=== PATIENT | female | born 1960 | race African-American/Black ===

== ENCOUNTER → 2017-10-10 | Day surgery (SDC) | payer OTHER ==
[~2017-10-10] MED LIST: IV RINGERS,LACTATED 1000ML 1,000 ML IV; LIDOCAINE 1% PF 2 ML VIAL. ID; LIDOCAINE 2% PF Vial for OR 5 ML VIAL.; ONDANSETRON PF 4 MG/2 ML VIAL. IV; PROCHLORPERAZINE 10 MG/2 ML VIAL. IV; PROPOFOL 40 ML IV; fentaNYL PF VIAL 100 MCG/2 ML VIAL IV
[2017-10-10] MEDS: IV RINGERS,LACTATED 1000ML 1,000 ML IV (07:44)
== END | disposition home or self-care (01) ==
LOC: ENDOS 06:49
DX: Z09 Encounter for follow-up examination after completed treatment for conditions other than malignant neoplasm (principal); Z86.010 Personal history of colon polyps; D12.4 Benign neoplasm of descending colon; K64.0 First degree hemorrhoids; K29.50 Unspecified chronic gastritis without bleeding; Z91.040 Latex allergy status; J45.909 Unspecified asthma, uncomplicated; M19.90 Unspecified osteoarthritis, unspecified site; K21.9 Gastro-esophageal reflux disease without esophagitis; Z80.41 Family history of malignant neoplasm of ovary; Z80.1 Family history of malignant neoplasm of trachea, bronchus and lung; F17.210 Nicotine dependence, cigarettes, uncomplicated; Z79.899 Other long term (current) drug therapy; Z90.49 Acquired absence of other specified parts of digestive tract; Z88.0 Allergy status to penicillin; Z88.1 Allergy status to other antibiotic agents; Z88.5 Allergy status to narcotic agent; Z88.8 Allergy status to other drugs, medicaments and biological substances; Z98.890 Other specified postprocedural states; Z89.512 Acquired absence of left leg below knee; Z89.511 Acquired absence of right leg below knee
CPT/HCPCS: 43235; 45380; 88305; J2704

== ENCOUNTER → 2017-10-20 | Outpatient (CLI) | payer OTHER, MEDICARE | END | disposition home or self-care (01) | LOC: NM 07:09 | DX: I70.213 Atherosclerosis of native arteries of extremities with intermittent claudication, bilateral legs (principal); I08.3 Combined rheumatic disorders of mitral, aortic and tricuspid valves | CPT/HCPCS: 93306; 93925 ==

== ENCOUNTER → 2017-10-28 | Outpatient (CLI) | payer OTHER | END | disposition home or self-care (01) | LOC: NM 08:09 | DX: R10.13 Epigastric pain (principal); R11.0 Nausea | CPT/HCPCS: 78264; A9541 ==

== ENCOUNTER → 2017-12-09 | Outpatient (CLI) | payer OTHER ==
[2017-12-09] MEDS: BARIUM SULFATE 60% 355 ML SUSP PO (09:00)
== END | disposition home or self-care (01) ==
LOC: RAD 08:18
DX: R10.13 Epigastric pain (principal); J45.909 Unspecified asthma, uncomplicated; K21.9 Gastro-esophageal reflux disease without esophagitis
CPT/HCPCS: 74250

== ENCOUNTER 2018-07-23 14:08 | Inpatient (IN) | payer OTHER ==
[~2018-07-23] VITALS: Ht 167.6 cm; Wt 57.8 kg
[~2018-07-23 14:08] MED LIST changes: +BACL20TA PO; +GABA800T5 PO; +HYDR-3165 PO; -IV RINGERS,LACTATED 1000ML 1,000 ML IV; -LIDOCAINE 1% PF 2 ML VIAL. ID; -LIDOCAINE 2% PF Vial for OR 5 ML VIAL.; +LORA10TA68 PO; +MONT10TA9 PO; -ONDANSETRON PF 4 MG/2 ML VIAL. IV; +OXYC30TA64 PO; -PROCHLORPERAZINE 10 MG/2 ML VIAL. IV; -PROPOFOL 40 ML IV; -fentaNYL PF VIAL 100 MCG/2 ML VIAL IV
[2018-07-23] MEDS ORDERED: NITROGLYCERIN SUBLINGUAL 0.4 MG BOTTLE OF 25. SL PRN (14:15)
[2018-07-23] MEDS: NITROGLYCERIN SUBLINGUAL 0.4 MG BOTTLE OF 25. SL PRN ×2 (14:30→15:53)
--- NOTE | 2018-07-23 14:41 | RAD ---
Portable chest, 07/23/2018: HISTORY: Chest pain The heart size and pulmonary vascularity are normal. No pulmonary infiltrate is seen. There is no evidence of pleural fluid. Moderate hypertrophic spurring is present in the spine. IMPRESSION: No acute cardiopulmonary abnormality is detected. Electronically signed by: Jason Gutiérrez MD (07/23/2018 2:38 PM) [facility]
[2018-07-23 14:43] LABS: BASO % 1 % (0-3); EOS % 0 % (0-3); HEMATOCRIT 44.3 % (36.0-47.0); HEMOGLOBIN 14.9 g/dL (12.0-15.5); LYMPH # 0.9 x10^3/uL (1.0-4.8); LYMPH % 27 % (24-48); MEAN CORPUSCULAR HEMOGLOBIN 30 pg (25-35); MEAN CORPUSCULAR HGB CONC 34 g/dL (31-37); MEAN CORPUSCULAR VOLUME 90 fL (79-100); MONO # 0.7 x10^3/uL (0.0-1.1); MONO % 20 % (0-9); NEUT # 1.8 x10^3uL (1.8-7.7); NEUT % 52 % (31-73); PLATELET COUNT 116 x10^3/uL (140-400); RED BLOOD COUNT 4.93 x10^6/uL (3.50-5.40); RED CELL DISTRIBUTION WIDTH 13.3 % (11.5-14.5); WHITE BLOOD COUNT 3.4 x10^3/uL (4.0-11.0)
[2018-07-23 14:55] LABS: CALCIUM 9.1 mg/dL (8.5-10.1); CREATININE 0.9 mg/dL (0.6-1.0); GFR 77.8
[2018-07-23 15:01] LABS: ALBUMIN 3.3 g/dL (3.4-5.0); ALBUMIN/GLOBULIN RATIO 0.8 (1.0-1.7); MAGNESIUM 2.3 mg/dL (1.8-2.4); TOTAL BILIRUBIN 0.5 mg/dL (0.2-1.0); TOTAL PROTEIN 7.5 g/dL (6.4-8.2)
[2018-07-23] MEDS ORDERED: fentaNYL PF VIAL 100 MCG/2 ML VIAL IV PRN (15:45)
[2018-07-23] MEDS ORDERED: ONDANSETRON PF 4 MG/2 ML VIAL. IV PRN (15:45)
--- NOTE | 2018-07-23 15:45 | PHYS DOC ---
Past Medical History Past Medical History: Asthma Additional Past Medical Histor: fibromyalgia, neuropathy Past Surgical History: Other Additional Past Surgical Histo: BILAT below knee amputation Alcohol Use: None Drug Use: None Adult General Chief Complaint Chief Complaint: UPPER EXTREMITY PAIN HPI HPI Patient is a 58-year-old female who presents with complaint of midsternal chest pain. Patient states that earlier today she had been taking some pills and one of the pills seem to get stuck in her throat. She states that she had choked for second and was able to get it down after drinking some water but has had chest pain ever since. She rates the pain as being moderate. She states the pain radiates into her right shoulder and arm. She does indicate that she became nauseated initially but currently has no nausea. Patient thinks that she may have some spasm in her esophagus. Review of Systems Review of Systems Constitutional: Denies fever or chills [] Respiratory: Denies cough or shortness of breath [] Cardiovascular: No additional information not addressed in HPI [] GI: Denies abdominal pain. Complains of nausea without vomiting. [] Integument: Denies rash or skin lesions [] Neurologic: Denies headache, focal weakness or sensory changes [] All other systems were reviewed and found to be within normal limits, except as documented in this note. Current Medications Current Medications Current Medications Medications (Trade) Dose Ordered Sig/Renate Start Time Stop Time Status Last Admin Dose Admin Nitroglycerin (Nitrostat) 0.4 mg PRN Q5MIN PRN 07/23/18 14:15 07/24/18 14:14 Allergies Allergies Allergies Coded Allergies Type Severity Reaction Last Updated Verified Penicillins Allergy Intermediate 10/10/17 No albuterol Allergy Intermediate 10/10/17 No ciprofloxacin Allergy Intermediate 10/10/17 No erythromycin base Allergy Intermediate 10/10/17 No latex Allergy Intermediate Hives 10/10/17 Yes morphine Allergy Intermediate 10/10/17 No Physical Exam Physical Exam Constitutional: Well developed, well nourished, no acute distress, non-toxic appearance. [] HENT: Normocephalic, atraumatic, bilateral external ears normal, oropharynx moist, no oral exudates, nose normal. [] Eyes: PERRLA, EOMI, conjunctiva normal, no discharge. [] Neck: Normal range of motion, no tenderness, supple, no stridor. [] Cardiovascular: Regular rate and rhythm[] Lungs & Thorax: Bilateral breath sounds clear to auscultation [] Abdomen: Bowel sounds normal, soft, no tenderness. [] Skin: Warm, dry, no erythema, no rash. [] Extremities: Exam of lower extremities demonstrates bilateral BKA's. [] Neurologic: Alert and oriented X 3, no focal deficits noted. [] Current Patient Data Vital Signs Vital Signs Date Time Temp Pulse Resp B/P (MAP) Pulse Ox O2 Delivery O2 Flow Rate FiO2 07/23/18 14:16 97.7 67 20 197/90 (125) 97 Room Air 97.7 Lab Values Laboratory Tests Test 07/23/18 14:35 White Blood Count 3.4 x10^3/uL (4.0-11.0) L Red Blood Count 4.93 x10^6/uL (3.50-5.40) Hemoglobin 14.9 g/dL (12.0-15.5) Hematocrit 44.3 % (36.0-47.0) Mean Corpuscular Volume 90 fL (79-100) Mean Corpuscular Hemoglobin 30 pg (25-35) Mean Corpuscular Hemoglobin Concent 34 g/dL (31-37) Red Cell Distribution Width 13.3 % (11.5-14.5) Platelet Count 116 x10^3/uL (140-400) L Neutrophils (%) (Auto) 52 % (31-73) Lymphocytes (%) (Auto) 27 % (24-48) Monocytes (%) (Auto) 20 % (0-9) H Eosinophils (%) (Auto) 0 % (0-3) Basophils (%) (Auto) 1 % (0-3) Neutrophils # (Auto) 1.8 x10^3uL (1.8-7.7) Lymphocytes # (Auto) 0.9 x10^3/uL (1.0-4.8) L Monocytes # (Auto) 0.7 x10^3/uL (0.0-1.1) Eosinophils # (Auto) 0.0 x10^3/uL (0.0-0.7) Basophils # (Auto) 0.0 x10^3/uL (0.0-0.2) Platelet Estimate Pending Sodium Level 144 mmol/L (136-145) Potassium Level 4.0 mmol/L (3.5-5.1) Chloride Level 105 mmol/L (98-107) Carbon Dioxide Level 32 mmol/L (21-32) Anion Gap 7 (6-14) Blood Urea Nitrogen 16 mg/dL (7-20) Creatinine 0.9 mg/dL (0.6-1.0) Estimated GFR (Cockcroft-Gault) 77.8 BUN/Creatinine Ratio 18 (6-20) Glucose Level 117 mg/dL (70-99) H Calcium Level 9.1 mg/dL (8.5-10.1) Magnesium Level 2.3 mg/dL (1.8-2.4) Total Bilirubin 0.5 mg/dL (0.2-1.0) Aspartate Amino Transferase (AST) 60 U/L (15-37) H Alanine Aminotransferase (ALT) 34 U/L (14-59) Alkaline Phosphatase 77 U/L (46-116) Troponin I Quantitative 0.021 ng/mL (0.000-0.055) Total Protein 7.5 g/dL (6.4-8.2) Albumin 3.3 g/dL (3.4-5.0) L Albumin/Globulin Ratio 0.8 (1.0-1.7) L Laboratory Tests 07/23/18 14:35 Laboratory Tests 07/23/18 14:35 EKG EKG [] Interpretation Time: EKG demonstrates normal sinus rhythm with rate of 67. Radiology/Procedures Radiology/Procedures [] Impressions: Chest x-ray demonstrates no acute process. Course & Med Decision Making Course & Med Decision Making Pertinent Labs and Imaging studies reviewed. (See chart for details) [] Dragon Disclaimer Dragon Disclaimer This electronic medical record was generated, in whole or in part, using a voice recognition dictation system. Departure Departure Impression: Primary Impression: Chest pain Disposition: 09 ADMITTED INPATIENT Admitting Physician: Cara Boone Condition: IMPROVED Referrals: EMMIE WEINER (PCP) Problem Qualifiers Primary Impression: Chest pain Chest pain type: unspecified Qualified Codes: R07.9 - Chest pain, unspecified RONALD LIRIANO Jr. DO Jul 23, 2018 15:45
[2018-07-23 16:17] LABS: % ATYL 5 % (0-0); % BANDS 13 % (0-9); % LYMPHS 27 % (24-48); % MONOS 11 % (0-10); % SEGS 44 % (35-66)
[2018-07-23 16:18] LABS: PLT ESTIMATE DECREASED (ADEQUATE)
[2018-07-23 17:00] VITALS: BP 156/91
--- NOTE | 2018-07-23 18:29 | PDOC1 ---
History and Physical Date of Admission Date of Admission DATE: 07/23/18 TIME: 18:23 Identification/Chief Complaint Chief Complaint chest pain Source Source: Chart review, Patient History of Present Illness History of Present Illness Ms. Marrero is a 58-year-old female who presents with complaint of midsternal chest pain. has been coughing, has bronchitis, has 7/10 pain to chest, worse with cough and worse with deep bresath. she is animated with her speech and agitated about her care in the ER, as they were very busy she has been stopped on her narcotic pain meds for chronic pain. She does indicate that she became nauseated initially but currently has no nausea. Patient thinks that she may have some spasm in her esophagus. Past Medical History Cardiovascular: No pertinent hx GI: No pertinent hx Hepatobiliary: No pertinent hx Psych: No pertinent hx Rheumatologic: No pertinent hx Infectious disease: No pertinent hx Family History Family History: No Significant Social History Smoke: No ALCOHOL: none Drugs: None Current Problem List Problem List Problems Medical Problems: (1) Chest pain Status: Acute Current Medications Current Medications Current Medications Nitroglycerin (Nitrostat) 0.4 mg PRN Q5MIN PRN SL CP RATING > 1/10; Start 07/23 at 14:15; Stop 07/24/18 at 14:14 Ondansetron HCl (Zofran) 4 mg PRN Q8HRS PRN IV NAUSEA/VOMITING; Start 07/23/18 at 15:45; Stop 07/24/18 at 15:44 Fentanyl Citrate (Fentanyl 2ml Vial) 50 mcg PRN Q1HR PRN IV PAIN; Start at 15:45; Stop 07/24/18 at 15:44 Nitroglycerin (Nitrostat) 0.4 mg PRN Q5MIN PRN SL CHEST PAIN Last administered on 07/23/18at 15:53; Start 07/23/18 at 15:45; Stop 07/24/18 at 15:44 Active Scripts Active Reported Baclofen 20 Mg Tablet 1 Tab PO TID Gabapentin 800 Mg Tablet 1,200 Mg PO TID Allergies Allergies: Coded Allergies: Penicillins (Unverified Allergy, Intermediate, 10/10/17) albuterol (Unverified Allergy, Intermediate, 10/10/17) ciprofloxacin (Unverified Allergy, Intermediate, 10/10/17) erythromycin base (Unverified Allergy, Intermediate, 10/10/17) latex (Verified Allergy, Intermediate, Hives, 10/10/17) morphine (Unverified Allergy, Intermediate, 10/10/17) ROS General: No: Chills, Night Sweats, Fatigue, Malaise, Appetite, Other PSYCHOLOGICAL ROS: No: Anxiety, Behavioral Disorder, Concentration difficultie , Decreased libido, Depression, Disorientation, Hallucinations, Hostility, Irritablity, Memory difficulties, Mood Swings, Obsessive thoughts, Physical abuse, Sexual abuse, Sleep disturbances, Suicidal ideation, Other Eyes: No Blurry vision, No Decreased vision, No Double vision, No Dry eyes, No Excessive tearing, No Eye Pain, No Itchy Eyes, No Loss of vision, No Photophobia , No Scotomata, No Uses contacts, No Uses glasses, No Other HEENT: No: Heacaches, Visual Changes, Hearing change, Nasal congestion, Nasal discharge, Oral lesions, Sinus pain, Sore Throat, Epistaxis, Sneezing, Snoring, Tinnitus, Vertigo, Vocal changes, Other Respiratory: No: Cough, Hemoptysis, Orthopnea, Pleuritic Pain, Shortness of breath, SOB with excertion, Sputum Changes, Stridor, Tachypnea, Wheezing, Other Cardiovascular: No Chest Pain, No Palpitations, No Orthopnea, No Paroxysmal Noc. Dyspnea, No Edema, No Lt Headedness, No Other Gastrointestinal: Yes Nausea Genitourinary: No Dysuria, No Frequency, No Incontinence, No Hematuria, No Retention, No Discharge, No Urgency, No Pain, No Flank Pain, No Other, No , No , No , No , No , No , No Musculoskeletal: No Gait Disturbance, No Joint Pain, No Joint Stiffness, No Joint Swelling, No Muscle Pain, No Muscular Weakness, No Pain In:, No Swelling In:, No Other Neurological: No Behavorial Changes, No Bowel/Bladder ControlChng, No Confusion , No Dizziness, No Gait Disturbance, No Headaches, No Impaired Coord/balance, No Memory Loss, No Numbness/Tingling, No Seizures, No Speech Problems, No Tremors, No Visual Changes, No Weakness, No Other Skin: No Dry Skin, No Eczema, No Hair Changes, No Lumps, No Mole Changes, No Mottling, No Nail Changes, No Pruritus, No Rash, No Skin Lesion Changes, No Other, No Acne Physical Exam General: Alert, Cooperative, No acute distress HEENT: PERRLA, EOMI, Mucous membr. moist/pink Lungs: Clear to auscultation, Normal air movement Heart: S1S2, no gallops, no murmurs Abdomen: Normal bowel sounds, Soft Rectal Exam: not examined Extremities: Normal pulses, Other (bilat BKA) Skin: No rashes, No breakdown, No significant lesion Neuro: Normal gait, Normal tone, Cranial nerves 3-12 NL Psych/Mental Status: Other (animated, pressured speech) Vitals Vitals Vital Signs Date Time Temp Pulse Resp B/P (MAP) Pulse Ox O2 Delivery O2 Flow Rate FiO2 07/23/18 15:53 74 166/78 07/23/18 15:47 96 Room Air 07/23/18 14:16 97.7 20 97.7 Labs Labs Laboratory Tests Test 07/23/18 14:35 White Blood Count 3.4 x10^3/uL (4.0-11.0) Red Blood Count 4.93 x10^6/uL (3.50-5.40) Hemoglobin 14.9 g/dL (12.0-15.5) Hematocrit 44.3 % (36.0-47.0) Mean Corpuscular Volume 90 fL (79-100) Mean Corpuscular Hemoglobin 30 pg (25-35) Mean Corpuscular Hemoglobin Concent 34 g/dL (31-37) Red Cell Distribution Width 13.3 % (11.5-14.5) Platelet Count 116 x10^3/uL (140-400) Neutrophils (%) (Auto) 52 % (31-73) Lymphocytes (%) (Auto) 27 % (24-48) Monocytes (%) (Auto) 20 % (0-9) Eosinophils (%) (Auto) 0 % (0-3) Basophils (%) (Auto) 1 % (0-3) Neutrophils # (Auto) 1.8 x10^3uL (1.8-7.7) Lymphocytes # (Auto) 0.9 x10^3/uL (1.0-4.8) Monocytes # (Auto) 0.7 x10^3/uL (0.0-1.1) Eosinophils # (Auto) 0.0 x10^3/uL (0.0-0.7) Basophils # (Auto) 0.0 x10^3/uL (0.0-0.2) Segmented Neutrophils % 44 % (35-66) Band Neutrophils % 13 % (0-9) Lymphocytes % 27 % (24-48) Atypical Lymphocytes % (Manual) 5 % (0-0) Monocytes % 11 % (0-10) Platelet Estimate Decreased (ADEQUATE) Sodium Level 144 mmol/L (136-145) Potassium Level 4.0 mmol/L (3.5-5.1) Chloride Level 105 mmol/L (98-107) Carbon Dioxide Level 32 mmol/L (21-32) Anion Gap 7 (6-14) Blood Urea Nitrogen 16 mg/dL (7-20) Creatinine 0.9 mg/dL (0.6-1.0) Estimated GFR (Cockcroft-Gault) 77.8 BUN/Creatinine Ratio 18 (6-20) Glucose Level 117 mg/dL (70-99) Calcium Level 9.1 mg/dL (8.5-10.1) Magnesium Level 2.3 mg/dL (1.8-2.4) Total Bilirubin 0.5 mg/dL (0.2-1.0) Aspartate Amino Transf (AST/SGOT) 60 U/L (15-37) Alanine Aminotransferase (ALT/SGPT) 34 U/L (14-59) Alkaline Phosphatase 77 U/L (46-116) Troponin I Quantitative 0.021 ng/mL (0.000-0.055) Total Protein 7.5 g/dL (6.4-8.2) Albumin 3.3 g/dL (3.4-5.0) Albumin/Globulin Ratio 0.8 (1.0-1.7) Laboratory Tests Test 07/23/18 14:35 White Blood Count 3.4 x10^3/uL (4.0-11.0) Red Blood Count 4.93 x10^6/uL (3.50-5.40) Hemoglobin 14.9 g/dL (12.0-15.5) Hematocrit 44.3 % (36.0-47.0) Mean Corpuscular Volume 90 fL (79-100) Mean Corpuscular Hemoglobin 30 pg (25-35) Mean Corpuscular Hemoglobin Concent 34 g/dL (31-37) Red Cell Distribution Width 13.3 % (11.5-14.5) Platelet Count 116 x10^3/uL (140-400) Neutrophils (%) (Auto) 52 % (31-73) Lymphocytes (%) (Auto) 27 % (24-48) Monocytes (%) (Auto) 20 % (0-9) Eosinophils (%) (Auto) 0 % (0-3) Basophils (%) (Auto) 1 % (0-3) Neutrophils # (Auto) 1.8 x10^3uL (1.8-7.7) Lymphocytes # (Auto) 0.9 x10^3/uL (1.0-4.8) Monocytes # (Auto) 0.7 x10^3/uL (0.0-1.1) Eosinophils # (Auto) 0.0 x10^3/uL (0.0-0.7) Basophils # (Auto) 0.0 x10^3/uL (0.0-0.2) Segmented Neutrophils % 44 % (35-66) Band Neutrophils % 13 % (0-9) Lymphocytes % 27 % (24-48) Atypical Lymphocytes % (Manual) 5 % (0-0) Monocytes % 11 % (0-10) Platelet Estimate Decreased (ADEQUATE) Sodium Level 144 mmol/L (136-145) Potassium Level 4.0 mmol/L (3.5-5.1) Chloride Level 105 mmol/L (98-107) Carbon Dioxide Level 32 mmol/L (21-32) Anion Gap 7 (6-14) Blood Urea Nitrogen 16 mg/dL (7-20) Creatinine 0.9 mg/dL (0.6-1.0) Estimated GFR (Cockcroft-Gault) 77.8 BUN/Creatinine Ratio 18 (6-20) Glucose Level 117 mg/dL (70-99) Calcium Level 9.1 mg/dL (8.5-10.1) Magnesium Level 2.3 mg/dL (1.8-2.4) Total Bilirubin 0.5 mg/dL (0.2-1.0) Aspartate Amino Transf (AST/SGOT) 60 U/L (15-37) Alanine Aminotransferase (ALT/SGPT) 34 U/L (14-59) Alkaline Phosphatase 77 U/L (46-116) Troponin I Quantitative 0.021 ng/mL (0.000-0.055) Total Protein 7.5 g/dL (6.4-8.2) Albumin 3.3 g/dL (3.4-5.0) Albumin/Globulin Ratio 0.8 (1.0-1.7) VTE Prophylaxis Ordered VTE Prophylaxis Devices: No VTE Pharmacological Prophylaxi: Yes Assessment/Plan Assessment/Plan chest pain, admit to r.o ACS cough, bronchitis, pleuritic pain, costochondritis LAY RUIZ MD Jul 23, 2018 18:29
[2018-07-23] MEDS ORDERED: guaiFENesin DM 200MG/20MG 10 ML SYRUP PO PRN (18:30)
[2018-07-23] MEDS ORDERED: diazePAM 5 MG TABLET PO ONE (18:30)
[2018-07-23] MEDS ORDERED: OSEL30CA PO (19:46)
[2018-07-23 19:50] VITALS: BP 169/104
[2018-07-23] MEDS: GABAPENTIN 400 MG CAPSULE. PO SCH (20:57)
[2018-07-23] MEDS: BACLOFEN 10 MG TABLET. PO SCH (20:57)
[2018-07-23] MEDS: ENOXAPARIN 40 MG/0.4 ML SYRINGE. SQ SCH (20:58)
[2018-07-23 22:19] VITALS: BP 128/75
[2018-07-24] VITALS (7 sets, daily range): BP systolic 129–175; BP diastolic 65–83
[2018-07-24] MEDS ORDERED: PRED20TA PO (01:25)
[2018-07-24 04:29] LABS: BASO % 0 % (0-3); EOS % 0 % (0-3); HEMATOCRIT 42.9 % (36.0-47.0); HEMOGLOBIN 14.3 g/dL (12.0-15.5); LYMPH # 0.9 x10^3/uL (1.0-4.8); LYMPH % 25 % (24-48); MEAN CORPUSCULAR HEMOGLOBIN 30 pg (25-35); MEAN CORPUSCULAR HGB CONC 33 g/dL (31-37); MEAN CORPUSCULAR VOLUME 91 fL (79-100); MONO # 0.5 x10^3/uL (0.0-1.1); MONO % 14 % (0-9); NEUT # 2.1 x10^3uL (1.8-7.7); NEUT % 61 % (31-73); PLATELET COUNT 119 x10^3/uL (140-400); RED BLOOD COUNT 4.74 x10^6/uL (3.50-5.40); RED CELL DISTRIBUTION WIDTH 13.7 % (11.5-14.5); WHITE BLOOD COUNT 3.5 x10^3/uL (4.0-11.0)
[2018-07-24 04:53] LABS: ALBUMIN 3.2 g/dL (3.4-5.0); ALBUMIN/GLOBULIN RATIO 0.8 (1.0-1.7); CALCIUM 9.2 mg/dL (8.5-10.1); CREATININE 0.8 mg/dL (0.6-1.0); GFR 89.1; POTASSIUM 4.4 mmol/L (3.5-5.1); TOTAL BILIRUBIN 0.5 mg/dL (0.2-1.0); TOTAL PROTEIN 7.1 g/dL (6.4-8.2)
[2018-07-24 04:58] LABS: CHOLESTEROL/HDL RATIO 5.7
[2018-07-24] MEDS: BACLOFEN 10 MG TABLET. PO SCH ×3 (09:25→21:28)
[2018-07-24] MEDS: GABAPENTIN 400 MG CAPSULE. PO SCH ×3 (09:25→21:29)
--- NOTE | 2018-07-24 10:11 | EKG ---
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
[2018-07-24] MEDS: OSELTAMIVIR 75 MG CAPSULE PO SCH ×2 (11:42→21:29)
[2018-07-24] MEDS: predniSONE 20 MG TABLET PO SCH (11:42)
--- NOTE | 2018-07-24 11:49 | NUR ---
SS following for discharge planning. Pt is from home and currently on room air. No discharge needs noted at this time. SS will continue to follow for pending discharge needs.
--- NOTE | 2018-07-24 12:40 | PDOC2 ---
SHASHANK MITTAL PHYSICIAN CODING SPECIALIST 07/24/18 1240: CARDIAC CONSULT DATE OF CONSULT Date of Consult DATE: 07/24/18 TIME: 12:12 REASON FOR CONSULT Reason for Consult: Chest pain REFERRING PHYSICIAN Referring Physician: Wes SOURCE Source: Chart review, Patient HISTORY OF PRESENT ILLNESS HISTORY OF PRESENT ILLNESS This is a pleasant 58 yo female admitted for complains of chest pain. Reports that yesterday he started having sharp crampy right sided chest pain which is also reproducible with palpation. Reports that this started after taking her pills which at times she feels like pills gets stuck. She has been having daily heartburn. Denies any nausea or SOA but yesterday he could not take a deep breath because of the pain. No GRIJALVA or exertional CP prior to this event. No palpitations or dizziness. No previous falls or any recent injury. PAST MEDICAL HISTORY Cardiovascular: Valve insufficiency, Other (murmu; scarlet fever; PAD) Pulmonary: Other (lung nodule) CENTRAL NERVOUS SYSTEM: Seizure Musculoskeletal: Osteoarthritis Rheumatologic: Fibromyalgia ENT: Allergic Rhinitis PAST SURGICAL HISTORY Past Surgical History: Cholecystectomy, Other (bilateral BKA 2007; ureteral stenting; abdominal surgery) FAMILY HISTORY Family History: Diabetes SOCIAL HISTORY Smoke: Quit ALCOHOL: none Drugs: None CURRENT MEDICATIONS CURRENT MEDICATIONS Current Medications Medications (Trade) Dose Ordered Sig/Renate Route PRN Reason Start Time Stop Time Status Last Admin Dose Admin Nitroglycerin (Nitrostat) 0.4 mg PRN Q5MIN PRN SL CHEST PAIN 07/23/18 15:45 07/24/18 15:44 07/23/18 15:53 Diazepam (Valium) 5 mg 1X ONCE PO 07/23/18 18:30 07/23/18 18:31 DC 07/23/18 20:58 Guaifenesin (Robitussin Dm) 10 ml PRN Q6HRS PRN PO COUGH 07/23/18 18:30 07/23/18 20:57 Enoxaparin Sodium (Lovenox 40mg Syringe) 40 mg Q24H SQ 07/23/18 21:00 07/23/18 20:58 Baclofen (Lioresal) 20 mg TID PO 07/23/18 21:00 07/24/18 09:25 Gabapentin (Neurontin) 1,200 mg TID PO 07/23/18 21:00 07/24/18 09:25 Oseltamivir Phosphate (Tamiflu) 75 mg BID PO 07/24/18 11:30 07/29/18 11:29 07/24/18 11:42 Prednisone (Prednisone) 60 mg DAILY PO 07/24/18 11:30 07/24/18 11:42 ALLERGIES ALLERGIES: Coded Allergies: Penicillins (Verified Allergy, Intermediate, 07/24/18) albuterol (Verified Allergy, Intermediate, 07/24/18) ciprofloxacin (Verified Allergy, Intermediate, 07/24/18) erythromycin base (Verified Allergy, Intermediate, 07/24/18) latex (Verified Allergy, Intermediate, Hives, 10/10/17) morphine (Verified Allergy, Intermediate, 07/24/18) ROS Review of System 14 point ROs evaluated with pertinent positives noted per HPI PHYSICAL EXAM General: Alert, Oriented X3, Cooperative, No acute distress HEENT: Atraumatic, Mucous membr. moist/pink Lungs: Other Heart: Regular rate (SR), Normal S1, Normal S2, Other (2/6 diastolic murmur to ERIN border) Abdomen: Soft, No tenderness Extremities: No cyanosis, No edema, Other (bi;lateral BKA ) Skin: No significant lesion Neuro: Normal speech, Sensation intact Psych/Mental Status: Mental status NL, Mood NL MUSCULOSKELETAL: Osteoarthritic changes both hands VITALS VITALS Vital Signs Date Time Temp Pulse Resp B/P (MAP) Pulse Ox O2 Delivery O2 Flow Rate FiO2 07/24/18 11:00 97.9 74 20 157/79 (105) 98 Room Air 97.9 LABS Lab: Laboratory Tests Test 07/23/18 14:35 07/23/18 19:00 07/23/18 23:30 07/24/18 03:00 White Blood Count 3.4 x10^3/uL (4.0-11.0) 3.5 x10^3/uL (4.0-11.0) Red Blood Count 4.93 x10^6/uL (3.50-5.40) 4.74 x10^6/uL (3.50-5.40) Hemoglobin 14.9 g/dL (12.0-15.5) 14.3 g/dL (12.0-15.5) Hematocrit 44.3 % (36.0-47.0) 42.9 % (36.0-47.0) Mean Corpuscular Volume 90 fL (79-100) 91 fL (79-100) Mean Corpuscular Hemoglobin 30 pg (25-35) 30 pg (25-35) Mean Corpuscular Hemoglobin Concent 34 g/dL (31-37) 33 g/dL (31-37) Red Cell Distribution Width 13.3 % (11.5-14.5) 13.7 % (11.5-14.5) Platelet Count 116 x10^3/uL (140-400) 119 x10^3/uL (140-400) Neutrophils (%) (Auto) 52 % (31-73) 61 % (31-73) Lymphocytes (%) (Auto) 27 % (24-48) 25 % (24-48) Monocytes (%) (Auto) 20 % (0-9) 14 % (0-9) Eosinophils (%) (Auto) 0 % (0-3) 0 % (0-3) Basophils (%) (Auto) 1 % (0-3) 0 % (0-3) Neutrophils # (Auto) 1.8 x10^3uL (1.8-7.7) 2.1 x10^3uL (1.8-7.7) Lymphocytes # (Auto) 0.9 x10^3/uL (1.0-4.8) 0.9 x10^3/uL (1.0-4.8) Monocytes # (Auto) 0.7 x10^3/uL (0.0-1.1) 0.5 x10^3/uL (0.0-1.1) Eosinophils # (Auto) 0.0 x10^3/uL (0.0-0.7) 0.0 x10^3/uL (0.0-0.7) Basophils # (Auto) 0.0 x10^3/uL (0.0-0.2) 0.0 x10^3/uL (0.0-0.2) Segmented Neutrophils % 44 % (35-66) Band Neutrophils % 13 % (0-9) Lymphocytes % 27 % (24-48) Atypical Lymphocytes % (Manual) 5 % (0-0) Monocytes % 11 % (0-10) Platelet Estimate Decreased (ADEQUATE) Sodium Level 144 mmol/L (136-145) 145 mmol/L (136-145) Potassium Level 4.0 mmol/L (3.5-5.1) 4.4 mmol/L (3.5-5.1) Chloride Level 105 mmol/L (98-107) 106 mmol/L (98-107) Carbon Dioxide Level 32 mmol/L (21-32) 34 mmol/L (21-32) Anion Gap 7 (6-14) 5 (6-14) Blood Urea Nitrogen 16 mg/dL (7-20) 16 mg/dL (7-20) Creatinine 0.9 mg/dL (0.6-1.0) 0.8 mg/dL (0.6-1.0) Estimated GFR (Cockcroft-Gault) 77.8 89.1 BUN/Creatinine Ratio 18 (6-20) 20 (6-20) Glucose Level 117 mg/dL (70-99) 126 mg/dL (70-99) Calcium Level 9.1 mg/dL (8.5-10.1) 9.2 mg/dL (8.5-10.1) Magnesium Level 2.3 mg/dL (1.8-2.4) Total Bilirubin 0.5 mg/dL (0.2-1.0) 0.5 mg/dL (0.2-1.0) Aspartate Amino Transf (AST/SGOT) 60 U/L (15-37) 52 U/L (15-37) Alanine Aminotransferase (ALT/SGPT) 34 U/L (14-59) 37 U/L (14-59) Alkaline Phosphatase 77 U/L (46-116) 73 U/L (46-116) Troponin I Quantitative 0.021 ng/mL (0.000-0.055) 0.052 ng/mL (0.000-0.055) 0.039 ng/mL (0.000-0.055) Total Protein 7.5 g/dL (6.4-8.2) 7.1 g/dL (6.4-8.2) Albumin 3.3 g/dL (3.4-5.0) 3.2 g/dL (3.4-5.0) Albumin/Globulin Ratio 0.8 (1.0-1.7) 0.8 (1.0-1.7) Triglycerides Level 209 mg/dL (0-150) Cholesterol Level 228 mg/dL (0-200) LDL Cholesterol, Calculated 146 mg/dL (0-100) VLDL Cholesterol, Calculated 42 mg/dL (0-40) Non-HDL Cholesterol Calculated 188 mg/dL (0-129) HDL Cholesterol 40 mg/dL (40-60) Cholesterol/HDL Ratio 5.7 IMAGES IMAGES <Conclusion> 1. Diffuse bilateral lower extremity arterial disease. Mildly elevated bilateral common femoral arterial disease suggestive of mild to moderate inflow disease. 2. Diffuse distal SFA and popliteal disease with significantly diminished velocities. If there is concern for left knee stump wound or pain issues could evaluate further with a CT angiogram or diagnostic angiography. DATE: 10/20/17 0946 ECHOCARDIOGRAM ECHOCARDIOGRAM <Conclusion> The left ventricular systolic function is normal and the ejection fraction is within normal range. The Ejection Fraction is 55-60%. There is normal LV segmental wall motion. Doppler and Color Flow revealed mild to moderate aortic regurgitation. PHT 450 ms. Doppler and Color-flow revealed mild mitral regurgitation. Doppler and Color Flow revealed trace to mild tricuspid regurgitation. The PA pressure was estimated at 34 mmHg. DATE: 10/20/17 0949 STRESS TEST STRESS TEST Conclusion 1. No evidence of EKG changes with stress testing. 2. Normal perfusion at stress/rest. 3. Low risk study. 4. EF > 60%. DATE: 10/21/17 1319 ASSESSMENT/PLAN ASSESSMENT/PLAN 1. Atypical Chest pain: possibly esophageal spasm with also GERD exacerbation. also reproducible. 2. Accelerated HTN: alliance party due to pain. 3. Moderate AI 4. LE PAD with bilateral BKA: mild to mod disease. WC bound, no pain 5. HLP: new 6. Asymptomatic SB: no pauses or blocks. 7. Hx of asthma: claimed angioedema with albuterol, currently with diffuse wheeze. no SOA. Per PCP. sees outpt editing intern. 9. Recent flu: still on tamiflu Recommendations. 1. May need consult GI. Intolerant to PPI in the past. Daily heartburn 2. Recent stress test as noted. above. No AV moo blocking agents. Start on chlorthalidone, ASA and lipitor. 3. TTE today. MESHA IYER MD 07/24/18 3077: CARDIAC CONSULT ASSESSMENT/PLAN ASSESSMENT/PLAN Patient seen and examined. Agree with PRODUCTION CONTROL COORDINATING CLERK's assessment and plan. Chest pain with atypical features and most probably musculoskeletal. Myocardial infarction has been ruled out. 2-D echo showed normal LV function without any wall motion abnormalities. Recent Lexiscan nuclear stress test did not show any significant ischemia. Consider gastroenterology team consultation. Blood pressure better controlled since admission. Thank you for your consultation. SHASHANK MITTAL APRN Jul 24, 2018 12:40 MESHA IYER MD Jul 24, 2018 15:58
--- NOTE | 2018-07-24 13:51 | NUR ---
Patient to have ECHO.
[2018-07-24] MEDS ORDERED: LIDO:MAALOX 1:1 20 ML SINGLE DOSE. PO PRN (14:15)
--- NOTE | 2018-07-24 14:17 | PDOC2 ---
GI CONSULT Reason For Consult: daily heartburn, can't tolerate PPIs HPI: HPI: 58 y/o female who has been ill for at least 8 days. Describes productive cough and fever w/ vomiting and diarrhea. Says she went to [facility] on Friday, was diagnosed w/ influenza and bronchitis and given Tamiflu and prednisone. Yesterday morning a small pill got stuck in her throat and she tried to motion for her assisted living housekeeper to get her something warm to drink so it would dissolve but then she bent over and "let out a blood-curdling scream" due to lower right chest/rib/upper right abd pain. No similar pain in the past. D/ w RN - previously did not tell her about any issue swallowing a pill but reported the pain was related to coughing really hard. 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 H/o GERD (describes reflux and post-prandial epigastric cramping for 7-10 years). Tried Prilosec, Nexium, and Protonix 7 years ago - says these caused vomiting. She was able to tolerate the Pepcid they provided in the hospital but not whatever was prescribed when she was discharged so she hasn't taken anything in years. She eats very small portions. H/o intermittent dysphagia - most recently w/ pills in throat as above. Doesn't occur daily - "it just depends." Recalls having to keep to baby food, mashed potatoes, yogurt, and blended foods for awhile. At one point did have issues swallowing solid foods and says she went to [place] where manometry was attempted but not completed "because they couldn't pass the wire due to scar tissue." She was also supposed to have "an eating study" there. Then she tried to follow-up with a doctor from [facility] who 's name was on a pill bottle but "that doctor didn't even exist!" She has lost ~20 pounds over the past few months but attributes this to falling off her chair and knocking some of her upper teeth out. Long h/o constipation sometimes improved by eating greens but apparently not improved w/ Linzess, Miralax, and Senna. Denies hematemesis, hematochezia, and melena. In 2018, had EGD and colonoscopy (after she went to [place]) which showed normal esophagus , chronic gastritis (no biopsy), normal duodenum, adenomatous transverse colon polyp, and non-bleeding internal hemorrhoids. Then had GES and SBS - both unremarkable. CTA was recommended as next step but she declined. S/p cholecystectomy. Denies pancreas or liver history. Takes Aleve PRN for headaches. Says chronic pain medications were stopped because of the opioid epidemic and a doctor told her to try marijuana. PMH: PMH: HLD, valvular disease, scarlet fever, fibromyalgia, arthritis, allergic rhinitis , nephrolithiasis, GERD, constipation, adenomatous colon polyp, hemorrhoids cholecystectomy, bilateral BKA, ureteral stent placement/removal FH: Family History: DM Social History: Smoke: Quit ALCOHOL: rare (a beer once in a blue [place]rick, recently had a "hot toddy" for resp symptoms) Drugs: Marijuana (says recommended for chronic pain) ROS: GEN: +fever HEENT: Denies blurred vision, sore throat CV: +chest pain RESP: +cough GI: Per HPI : Denies hematuria, dysuria ENDO: +weight loss NEURO: Denies confusion, dizziness MSK: +chronic pain SKIN: Denies jaundice, pruritus Vitals: Vitals: Vital Signs Date Time Temp Pulse Resp B/P (MAP) Pulse Ox O2 Delivery O2 Flow Rate FiO2 07/24/18 11:00 97.9 74 20 157/79 (105) 98 Room Air 97.9 Labs: Labs: Laboratory Tests Test 07/23/18 14:35 07/23/18 19:00 07/23/18 23:30 07/24/18 03:00 White Blood Count 3.4 x10^3/uL (4.0-11.0) 3.5 x10^3/uL (4.0-11.0) Red Blood Count 4.93 x10^6/uL (3.50-5.40) 4.74 x10^6/uL (3.50-5.40) Hemoglobin 14.9 g/dL (12.0-15.5) 14.3 g/dL (12.0-15.5) Hematocrit 44.3 % (36.0-47.0) 42.9 % (36.0-47.0) Mean Corpuscular Volume 90 fL (79-100) 91 fL (79-100) Mean Corpuscular Hemoglobin 30 pg (25-35) 30 pg (25-35) Mean Corpuscular Hemoglobin Concent 34 g/dL (31-37) 33 g/dL (31-37) Red Cell Distribution Width 13.3 % (11.5-14.5) 13.7 % (11.5-14.5) Platelet Count 116 x10^3/uL (140-400) 119 x10^3/uL (140-400) Neutrophils (%) (Auto) 52 % (31-73) 61 % (31-73) Lymphocytes (%) (Auto) 27 % (24-48) 25 % (24-48) Monocytes (%) (Auto) 20 % (0-9) 14 % (0-9) Eosinophils (%) (Auto) 0 % (0-3) 0 % (0-3) Basophils (%) (Auto) 1 % (0-3) 0 % (0-3) Neutrophils # (Auto) 1.8 x10^3uL (1.8-7.7) 2.1 x10^3uL (1.8-7.7) Lymphocytes # (Auto) 0.9 x10^3/uL (1.0-4.8) 0.9 x10^3/uL (1.0-4.8) Monocytes # (Auto) 0.7 x10^3/uL (0.0-1.1) 0.5 x10^3/uL (0.0-1.1) Eosinophils # (Auto) 0.0 x10^3/uL (0.0-0.7) 0.0 x10^3/uL (0.0-0.7) Basophils # (Auto) 0.0 x10^3/uL (0.0-0.2) 0.0 x10^3/uL (0.0-0.2) Segmented Neutrophils % 44 % (35-66) Band Neutrophils % 13 % (0-9) Lymphocytes % 27 % (24-48) Atypical Lymphocytes % (Manual) 5 % (0-0) Monocytes % 11 % (0-10) Platelet Estimate Decreased (ADEQUATE) Sodium Level 144 mmol/L (136-145) 145 mmol/L (136-145) Potassium Level 4.0 mmol/L (3.5-5.1) 4.4 mmol/L (3.5-5.1) Chloride Level 105 mmol/L (98-107) 106 mmol/L (98-107) Carbon Dioxide Level 32 mmol/L (21-32) 34 mmol/L (21-32) Anion Gap 7 (6-14) 5 (6-14) Blood Urea Nitrogen 16 mg/dL (7-20) 16 mg/dL (7-20) Creatinine 0.9 mg/dL (0.6-1.0) 0.8 mg/dL (0.6-1.0) Estimated GFR (Cockcroft-Gault) 77.8 89.1 BUN/Creatinine Ratio 18 (6-20) 20 (6-20) Glucose Level 117 mg/dL (70-99) 126 mg/dL (70-99) Calcium Level 9.1 mg/dL (8.5-10.1) 9.2 mg/dL (8.5-10.1) Magnesium Level 2.3 mg/dL (1.8-2.4) Total Bilirubin 0.5 mg/dL (0.2-1.0) 0.5 mg/dL (0.2-1.0) Aspartate Amino Transf (AST/SGOT) 60 U/L (15-37) 52 U/L (15-37) Alanine Aminotransferase (ALT/SGPT) 34 U/L (14-59) 37 U/L (14-59) Alkaline Phosphatase 77 U/L (46-116) 73 U/L (46-116) Troponin I Quantitative 0.021 ng/mL (0.000-0.055) 0.052 ng/mL (0.000-0.055) 0.039 ng/mL (0.000-0.055) Total Protein 7.5 g/dL (6.4-8.2) 7.1 g/dL (6.4-8.2) Albumin 3.3 g/dL (3.4-5.0) 3.2 g/dL (3.4-5.0) Albumin/Globulin Ratio 0.8 (1.0-1.7) 0.8 (1.0-1.7) Triglycerides Level 209 mg/dL (0-150) Cholesterol Level 228 mg/dL (0-200) LDL Cholesterol, Calculated 146 mg/dL (0-100) VLDL Cholesterol, Calculated 42 mg/dL (0-40) Non-HDL Cholesterol Calculated 188 mg/dL (0-129) HDL Cholesterol 40 mg/dL (40-60) Cholesterol/HDL Ratio 5.7 Allergies: Coded Allergies: Penicillins (Verified Allergy, Intermediate, 07/24/18) albuterol (Verified Allergy, Intermediate, 07/24/18) ciprofloxacin (Verified Allergy, Intermediate, 07/24/18) erythromycin base (Verified Allergy, Intermediate, 07/24/18) latex (Verified Allergy, Intermediate, Hives, 10/10/17) morphine (Verified Allergy, Intermediate, 07/24/18) Medications: Current Medications Medications (Trade) Dose Ordered Sig/Renate Route PRN Reason Start Time Stop Time Status Last Admin Dose Admin Nitroglycerin (Nitrostat) 0.4 mg PRN Q5MIN PRN SL CHEST PAIN 07/23/18 15:45 07/24/18 12:54 DC 07/23/18 15:53 Diazepam (Valium) 5 mg 1X ONCE PO 07/23/18 18:30 07/23/18 18:31 DC 07/23/18 20:58 Guaifenesin (Robitussin Dm) 10 ml PRN Q6HRS PRN PO COUGH 07/23/18 18:30 07/23/18 20:57 Enoxaparin Sodium (Lovenox 40mg Syringe) 40 mg Q24H SQ 07/23/18 21:00 07/23/18 20:58 Baclofen (Lioresal) 20 mg TID PO 07/23/18 21:00 07/24/18 09:25 Gabapentin (Neurontin) 1,200 mg TID PO 07/23/18 21:00 07/24/18 09:25 Oseltamivir Phosphate (Tamiflu) 75 mg BID PO 07/24/18 11:30 07/26/18 21:01 07/24/18 11:42 Prednisone (Prednisone) 60 mg DAILY PO 07/24/18 11:30 07/24/18 11:42 Imaging: Imaging: CXR 07/23/18 IMPRESSION: No acute cardiopulmonary abnormality is detected. Echocardiogram 09/2017 <Conclusion> The left ventricular systolic function is normal and the ejection fraction is within normal range. The Ejection Fraction is 55-60%. There is normal LV segmental wall motion. Doppler and Color Flow revealed mild to moderate aortic regurgitation. PHT 450 ms. Doppler and Color-flow revealed mild mitral regurgitation. Doppler and Color Flow revealed trace to mild tricuspid regurgitation. The PA pressure was estimated at 34 mmHg. MPI 09/2017 Conclusion 1. No evidence of EKG changes with stress testing. 2. Normal perfusion at stress/rest. 3. Low risk study. 4. EF > 60%. GES 09/2017 IMPRESSION: Normal radionuclide gastric imaging study (w/ 8% retention at 4 hours). SBS 11/2017 IMPRESSION: No significant small bowel abnormality is detected. PE: GEN: NAD - very animated HEENT: Atraumatic, PERRL LUNGS: CTAB HEART: RRR ABD: NABS, S/ND, mild tenderness epigastrium/RUQ - seems MSK EXTREMITY: BLE AKA SKIN: No rashes, no jaundice NEURO/PSYCH: A & O 3 A/P: A/P: Influenza, cough, n/v, diarrhea - improved Right-sided chest/rib/upper abd pain - better Leukopenia, thrombocytopenia, mildly elevated AST (better) Chronic post-prandial upper abd cramping Intermittent pill dysphagia GERD - EGD unrevealing except for chronic gastritis 09/2017 CRC screen, h/o adenomatous polyp - UTD, colonoscopy 09/2017 H/o constipation S/p cholecystectomy Poor dentition Fibromyalgia/chronic pain -- Start w/ esophagram re: pill-swallowing complaints. Could also consider CTA A/ P re: chronic post-prandial pain - could also pursue this as outpt. 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 Can try GI cocktail or dicyclomine PRN, could also consider Carafate. Recently had diarrhea but has h/o constipation - monitor stooling, check studies or treat constipation if indicated. ?mechanical soft diet considering dental issues Request records from [facility] re: manometry, etc. RUDDY BRUNNER Jul 24, 2018 14:17
--- NOTE | 2018-07-24 14:49 | CARD ---
MR#: [id number] Date of Study: 07/24/2018 Ordering Physician: SHASHANK MITTAL, Referring Physician: LAY RUIZ Tech: Zora Adan RDCS APPROVED REPORT EXAM: Two-dimensional and M-mode echocardiogram with Doppler and color Doppler. Other Information Quality : AverageHR: 59bpm Rhythm : NSR INDICATION Chest Pain 2D DIMENSIONS RVDd2.8 (2.9-3.5cm)Left Atrium(2D)3.7 (1.6-4.0cm) IVSd0.8 (0.7-1.1cm)Aortic Root(2D)2.5 (2.0-3.7cm) LVDd4.2 (3.9-5.9cm)LVOT Diameter1.8 (1.8-2.4cm) PWd0.8 (0.7-1.1cm)LVDs2.9 (2.5-4.0cm) FS (%) 30.5 %SV45.3 ml LVEF(%)58.3 (>50%) M-Mode DIMENSIONS Left Atrium(MM)3.65 (2.5-4.0cm)Aortic Root2.49 (2.2-3.7cm) Aortic Valve AoV Peak Maynor.174.3cm/sAoV VTI36.2cm AO Peak GR.12.1mmHgLVOT Peak Maynor.123.3cm/s AO Mean GR.5mmHgAVA (VMAX)1.83cm2 DOUGLAS (VTI)1.01as8AU P 1/2 [id number] Mitral Valve MV E Ipuyblhp70.7cm/sMV E Peak Gr.3mmHg MV DECEL [id number] A Pueocbid31.4cm/s MV E Mean Gr.1mmHgE/A Ratio1.0 MV A [id number] Tricuspid Valve TR P. [id number]/sRAP [id number] TR Peak Gr.[id number] LEFT VENTRICLE The left ventricle is normal size. There is normal left ventricular wall thickness. The left ventricu lar systolic function is normal and the ejection fraction is within normal range. The Ejection Fracti on is 50-55%. Transmitral Doppler flow pattern is abnormal. RIGHT VENTRICLE The right ventricle is normal size. There is normal right ventricular wall thickness. The right ventr icular systolic function is normal. ATRIA The left atrium size is normal. The right atrium size is normal. The interatrial septum is intact wit h no evidence for an atrial septal defect or patent foramen ovale as noted on 2-D or Doppler imaging. AORTIC VALVE The aortic valve is thickened but opens well. The aortic valve is trileaflet. Doppler and Color Flow revealed mild aortic regurgitation. There is no significant aortic valvular stenosis. MITRAL VALVE The mitral valve is thickened but opens well. There is no evidence of mitral valve prolapse. There is no mitral valve stenosis. Doppler and Color Flow revealed no mitral valve regurgitation noted. TRICUSPID VALVE The tricuspid valve is normal in structure and function. Doppler and Color Flow revealed trace tricus pid regurgitation. The PA pressure was estimated at 23 mmHg. There is no tricuspid valve prolapse or vegetation. PULMONIC VALVE Pulmonic valve not well visualized. GREAT VESSELS The aortic root is normal in size. The ascending aorta is normal in size. The IVC is normal in size a nd collapses >50% with inspiration. PERICARDIAL EFFUSION There is no evidence of significant pericardial effusion. Critical Notification Critical Value: No <Conclusion> The left ventricle is normal size. The left ventricular systolic function is normal and the ejection fraction is within normal range. The Ejection Fraction is 50-55%. There is no significant aortic valvular stenosis. Doppler and Color Flow revealed mild aortic regurgitation. Doppler and Color Flow revealed no mitral valve regurgitation noted. Doppler and Color Flow revealed trace tricuspid regurgitation. The PA pressure was estimated at 23 mmHg. Signed by : Malcolm Alvarez MD Electronically Approved : 07/24/2018 14:48:40
[2018-07-24] MEDS: ASPIRIN ENTERIC COATED 81 MG TABLET.DR. PO SCH (14:56)
[2018-07-24] MEDS: CHLORTHALIDONE 25 MG TABLET. PO SCH (14:56)
--- NOTE | 2018-07-24 15:23 | PDOC ---
PROGRESS NOTES Chief Complaint Chief Complaint A/P: Recent diagnosis of Influenza, cough, n/v, diarrhea - improved atypical chest pain seems to be related to pill that "got stuck" yesterday. GERD esophageal spasm? History of bilateral lower extremity amputation, etiology undetermined patient relates it was done in [place] after spending 1 year on life support. Plan: follow recommendations from consultants Cardiology has signed off but recommended a GI evaluation GI eval yielded the following recommendations: -- Start w/ esophagram re: pill-swallowing complaints. Could also consider CTA A/ P re: chronic post-prandial pain - could also pursue this as outpt. 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 Can try GI cocktail or dicyclomine PRN, could also consider Carafate. Recently had diarrhea but has h/o constipation - monitor stooling, check studies or treat constipation if indicated. ?mechanical soft diet considering dental issues Request records from [facility] re: manometry, etc. History of Present Illness History of Present Illness Patient overall in no apparent distress, patient with no further chest discomfort, reassurance provided Vitals Vitals Vital Signs Date Time Temp Pulse Resp B/P (MAP) Pulse Ox O2 Delivery O2 Flow Rate FiO2 07/24/18 11:00 97.9 74 20 157/79 (105) 98 Room Air 97.9 Physical Exam General: Alert, Oriented X3, Cooperative, No acute distress Heart: Regular rate (SR), Normal S1, Normal S2, Other (2/6 diastolic murmur to ERIN border) Abdomen: Soft, No tenderness Extremities: No cyanosis, No edema, Other (bi;lateral BKA ) Skin: No significant lesion Labs LABS Laboratory Tests Test 07/23/18 19:00 07/23/18 23:30 07/24/18 03:00 Troponin I Quantitative 0.052 ng/mL (0.000-0.055) 0.039 ng/mL (0.000-0.055) White Blood Count 3.5 x10^3/uL (4.0-11.0) Red Blood Count 4.74 x10^6/uL (3.50-5.40) Hemoglobin 14.3 g/dL (12.0-15.5) Hematocrit 42.9 % (36.0-47.0) Mean Corpuscular Volume 91 fL (79-100) Mean Corpuscular Hemoglobin 30 pg (25-35) Mean Corpuscular Hemoglobin Concent 33 g/dL (31-37) Red Cell Distribution Width 13.7 % (11.5-14.5) Platelet Count 119 x10^3/uL (140-400) Neutrophils (%) (Auto) 61 % (31-73) Lymphocytes (%) (Auto) 25 % (24-48) Monocytes (%) (Auto) 14 % (0-9) Eosinophils (%) (Auto) 0 % (0-3) Basophils (%) (Auto) 0 % (0-3) Neutrophils # (Auto) 2.1 x10^3uL (1.8-7.7) Lymphocytes # (Auto) 0.9 x10^3/uL (1.0-4.8) Monocytes # (Auto) 0.5 x10^3/uL (0.0-1.1) Eosinophils # (Auto) 0.0 x10^3/uL (0.0-0.7) Basophils # (Auto) 0.0 x10^3/uL (0.0-0.2) Sodium Level 145 mmol/L (136-145) Potassium Level 4.4 mmol/L (3.5-5.1) Chloride Level 106 mmol/L (98-107) Carbon Dioxide Level 34 mmol/L (21-32) Anion Gap 5 (6-14) Blood Urea Nitrogen 16 mg/dL (7-20) Creatinine 0.8 mg/dL (0.6-1.0) Estimated GFR (Cockcroft-Gault) 89.1 BUN/Creatinine Ratio 20 (6-20) Glucose Level 126 mg/dL (70-99) Calcium Level 9.2 mg/dL (8.5-10.1) Total Bilirubin 0.5 mg/dL (0.2-1.0) Aspartate Amino Transf (AST/SGOT) 52 U/L (15-37) Alanine Aminotransferase (ALT/SGPT) 37 U/L (14-59) Alkaline Phosphatase 73 U/L (46-116) Total Protein 7.1 g/dL (6.4-8.2) Albumin 3.2 g/dL (3.4-5.0) Albumin/Globulin Ratio 0.8 (1.0-1.7) Triglycerides Level 209 mg/dL (0-150) Cholesterol Level 228 mg/dL (0-200) LDL Cholesterol, Calculated 146 mg/dL (0-100) VLDL Cholesterol, Calculated 42 mg/dL (0-40) Non-HDL Cholesterol Calculated 188 mg/dL (0-129) HDL Cholesterol 40 mg/dL (40-60) Cholesterol/HDL Ratio 5.7 Review of Systems Review of Systems positive as per hpi otherwise 10 point review is negative. Assessment and Plan Assessmemt and Plan Problems Medical Problems: (1) Chest pain Status: Acute Comment Review of Relevant I have reviewed the following items jerel (where applicable) has been applied. Labs Laboratory Tests Test 07/23/18 14:35 07/23/18 19:00 07/23/18 23:30 07/24/18 03:00 White Blood Count 3.4 x10^3/uL (4.0-11.0) 3.5 x10^3/uL (4.0-11.0) Red Blood Count 4.93 x10^6/uL (3.50-5.40) 4.74 x10^6/uL (3.50-5.40) Hemoglobin 14.9 g/dL (12.0-15.5) 14.3 g/dL (12.0-15.5) Hematocrit 44.3 % (36.0-47.0) 42.9 % (36.0-47.0) Mean Corpuscular Volume 90 fL (79-100) 91 fL (79-100) Mean Corpuscular Hemoglobin 30 pg (25-35) 30 pg (25-35) Mean Corpuscular Hemoglobin Concent 34 g/dL (31-37) 33 g/dL (31-37) Red Cell Distribution Width 13.3 % (11.5-14.5) 13.7 % (11.5-14.5) Platelet Count 116 x10^3/uL (140-400) 119 x10^3/uL (140-400) Neutrophils (%) (Auto) 52 % (31-73) 61 % (31-73) Lymphocytes (%) (Auto) 27 % (24-48) 25 % (24-48) Monocytes (%) (Auto) 20 % (0-9) 14 % (0-9) Eosinophils (%) (Auto) 0 % (0-3) 0 % (0-3) Basophils (%) (Auto) 1 % (0-3) 0 % (0-3) Neutrophils # (Auto) 1.8 x10^3uL (1.8-7.7) 2.1 x10^3uL (1.8-7.7) Lymphocytes # (Auto) 0.9 x10^3/uL (1.0-4.8) 0.9 x10^3/uL (1.0-4.8) Monocytes # (Auto) 0.7 x10^3/uL (0.0-1.1) 0.5 x10^3/uL (0.0-1.1) Eosinophils # (Auto) 0.0 x10^3/uL (0.0-0.7) 0.0 x10^3/uL (0.0-0.7) Basophils # (Auto) 0.0 x10^3/uL (0.0-0.2) 0.0 x10^3/uL (0.0-0.2) Segmented Neutrophils % 44 % (35-66) Band Neutrophils % 13 % (0-9) Lymphocytes % 27 % (24-48) Atypical Lymphocytes % (Manual) 5 % (0-0) Monocytes % 11 % (0-10) Platelet Estimate Decreased (ADEQUATE) Sodium Level 144 mmol/L (136-145) 145 mmol/L (136-145) Potassium Level 4.0 mmol/L (3.5-5.1) 4.4 mmol/L (3.5-5.1) Chloride Level 105 mmol/L (98-107) 106 mmol/L (98-107) Carbon Dioxide Level 32 mmol/L (21-32) 34 mmol/L (21-32) Anion Gap 7 (6-14) 5 (6-14) Blood Urea Nitrogen 16 mg/dL (7-20) 16 mg/dL (7-20) Creatinine 0.9 mg/dL (0.6-1.0) 0.8 mg/dL (0.6-1.0) Estimated GFR (Cockcroft-Gault) 77.8 89.1 BUN/Creatinine Ratio 18 (6-20) 20 (6-20) Glucose Level 117 mg/dL (70-99) 126 mg/dL (70-99) Calcium Level 9.1 mg/dL (8.5-10.1) 9.2 mg/dL (8.5-10.1) Magnesium Level 2.3 mg/dL (1.8-2.4) Total Bilirubin 0.5 mg/dL (0.2-1.0) 0.5 mg/dL (0.2-1.0) Aspartate Amino Transf (AST/SGOT) 60 U/L (15-37) 52 U/L (15-37) Alanine Aminotransferase (ALT/SGPT) 34 U/L (14-59) 37 U/L (14-59) Alkaline Phosphatase 77 U/L (46-116) 73 U/L (46-116) Troponin I Quantitative 0.021 ng/mL (0.000-0.055) 0.052 ng/mL (0.000-0.055) 0.039 ng/mL (0.000-0.055) Total Protein 7.5 g/dL (6.4-8.2) 7.1 g/dL (6.4-8.2) Albumin 3.3 g/dL (3.4-5.0) 3.2 g/dL (3.4-5.0) Albumin/Globulin Ratio 0.8 (1.0-1.7) 0.8 (1.0-1.7) Triglycerides Level 209 mg/dL (0-150) Cholesterol Level 228 mg/dL (0-200) LDL Cholesterol, Calculated 146 mg/dL (0-100) VLDL Cholesterol, Calculated 42 mg/dL (0-40) Non-HDL Cholesterol Calculated 188 mg/dL (0-129) HDL Cholesterol 40 mg/dL (40-60) Cholesterol/HDL Ratio 5.7 Laboratory Tests Test 07/23/18 19:00 07/23/18 23:30 07/24/18 03:00 Troponin I Quantitative 0.052 ng/mL (0.000-0.055) 0.039 ng/mL (0.000-0.055) White Blood Count 3.5 x10^3/uL (4.0-11.0) Red Blood Count 4.74 x10^6/uL (3.50-5.40) Hemoglobin 14.3 g/dL (12.0-15.5) Hematocrit 42.9 % (36.0-47.0) Mean Corpuscular Volume 91 fL (79-100) Mean Corpuscular Hemoglobin 30 pg (25-35) Mean Corpuscular Hemoglobin Concent 33 g/dL (31-37) Red Cell Distribution Width 13.7 % (11.5-14.5) Platelet Count 119 x10^3/uL (140-400) Neutrophils (%) (Auto) 61 % (31-73) Lymphocytes (%) (Auto) 25 % (24-48) Monocytes (%) (Auto) 14 % (0-9) Eosinophils (%) (Auto) 0 % (0-3) Basophils (%) (Auto) 0 % (0-3) Neutrophils # (Auto) 2.1 x10^3uL (1.8-7.7) Lymphocytes # (Auto) 0.9 x10^3/uL (1.0-4.8) Monocytes # (Auto) 0.5 x10^3/uL (0.0-1.1) Eosinophils # (Auto) 0.0 x10^3/uL (0.0-0.7) Basophils # (Auto) 0.0 x10^3/uL (0.0-0.2) Sodium Level 145 mmol/L (136-145) Potassium Level 4.4 mmol/L (3.5-5.1) Chloride Level 106 mmol/L (98-107) Carbon Dioxide Level 34 mmol/L (21-32) Anion Gap 5 (6-14) Blood Urea Nitrogen 16 mg/dL (7-20) Creatinine 0.8 mg/dL (0.6-1.0) Estimated GFR (Cockcroft-Gault) 89.1 BUN/Creatinine Ratio 20 (6-20) Glucose Level 126 mg/dL (70-99) Calcium Level 9.2 mg/dL (8.5-10.1) Total Bilirubin 0.5 mg/dL (0.2-1.0) Aspartate Amino Transf (AST/SGOT) 52 U/L (15-37) Alanine Aminotransferase (ALT/SGPT) 37 U/L (14-59) Alkaline Phosphatase 73 U/L (46-116) Total Protein 7.1 g/dL (6.4-8.2) Albumin 3.2 g/dL (3.4-5.0) Albumin/Globulin Ratio 0.8 (1.0-1.7) Triglycerides Level 209 mg/dL (0-150) Cholesterol Level 228 mg/dL (0-200) LDL Cholesterol, Calculated 146 mg/dL (0-100) VLDL Cholesterol, Calculated 42 mg/dL (0-40) Non-HDL Cholesterol Calculated 188 mg/dL (0-129) HDL Cholesterol 40 mg/dL (40-60) Cholesterol/HDL Ratio 5.7 Medications Current Medications Nitroglycerin (Nitrostat) 0.4 mg PRN Q5MIN PRN SL CP RATING > 1/10; Start 07/23 at 14:15; Stop 07/24/18 at 14:14; Status DC Ondansetron HCl (Zofran) 4 mg PRN Q8HRS PRN IV NAUSEA/VOMITING; Start 07/23/18 at 15:45; Stop 07/24/18 at 15:44 Fentanyl Citrate (Fentanyl 2ml Vial) 50 mcg PRN Q1HR PRN IV PAIN; Start at 15:45; Stop 07/24/18 at 15:44 Nitroglycerin (Nitrostat) 0.4 mg PRN Q5MIN PRN SL CHEST PAIN Last administered on 07/23/18at 15:53; Start 07/23/18 at 15:45; Stop 07/24/18 at 12:54; Status DC Diazepam (Valium) 5 mg 1X ONCE PO Last administered on 07/23/18at 20:58; Start 07/23/18 at 18:30; Stop 07/23/18 at 18:31; Status DC Enoxaparin Sodium (Lovenox Per Pharmacy Prophylaxis Dosing) 1 each PRN DAILY PRN MC SEE COMMENTS; Start 07/23/18 at 18:30; Stop 07/24/18 at 12:54; Status DC Guaifenesin (Robitussin Dm) 10 ml PRN Q6HRS PRN PO COUGH Last administered on at 20:57; Start 07/23/18 at 18:30 Oxycodone/ Acetaminophen (Percocet 5/325) 1 tab PRN Q4HRS PRN PO PAIN; Start at 18:30 Enoxaparin Sodium (Lovenox 40mg Syringe) 40 mg Q24H SQ Last administered on at 20:58; Start 07/23/18 at 21:00 Baclofen (Lioresal) 20 mg TID PO Last administered on 07/24/18at 14:56; Start at 21:00 Gabapentin (Neurontin) 1,200 mg TID PO Last administered on 07/24/18 14:56; Start 07/23/18 at 21:00 Oseltamivir Phosphate (Tamiflu) 75 mg BID PO Last administered on 07/24/18 11: 42; Start 07/24/18 at 11:30; Stop 07/26/18 at 21:01 Prednisone (Prednisone) 60 mg DAILY PO Last administered on 07/24/18 11:42; Start 07/24/18 at 11:30 Atorvastatin Calcium (Lipitor) 40 mg QHS PO ; Start 07/24/18 at 21:00 Aspirin (Ecotrin) 81 mg DAILYWBKFT PO Last administered on 07/24/18at 14:56; Start 07/24/18 at 14:00 Chlorthalidone (Thalitone) 25 mg DAILY PO Last administered on 07/24/18 14:56 ; Start 07/24/18 at 14:00 Famotidine (Pepcid) 20 mg BID PO ; Start 07/24/18 at 21:00 Multi-Ingredient Mouthwash/Gargle (Gi Cocktail) 20 ml PRN QID PRN PO CHEST PAIN ; Start 07/24/18 at 14:15 Dicyclomine HCl (Bentyl) 10 mg PRN QID PRN PO chest/abd pain; Start 07/24/18 at 14:15 Active Scripts Active Reported Prednisone 20 Mg Tablet 3 Tab PO DAILY Tamiflu (Oseltamivir Phosphate) 30 Mg Capsule 75 Mg PO BID Baclofen 20 Mg Tablet 1 Tab PO TID Gabapentin 800 Mg Tablet 1,200 Mg PO TID Vitals/I & O Vital Sign - Last 24 Hours 07/23/18 07/23/18 07/23/18 07/23/18 15:17 15:32 15:47 15:53 Pulse 66 66 64 74 B/P (MAP) 162/77 (105) 153/73 (99) 149/89 (109) 166/78 Pulse Ox 96 95 96 O2 Delivery Room Air Room Air Room Air 07/23/18 07/23/18 07/23/18 07/23/18 17:00 19:50 20:00 22:19 Temp 98.0 98.1 98.0 98.0 98.1 98.0 Pulse 67 65 80 Resp 18 18 18 B/P (MAP) 156/91 (112) 169/104 (125) 128/75 (92) Pulse Ox 97 97 97 O2 Delivery Room Air Room Air Room Air Room Air 07/24/18 07/24/18 07/24/18 07/24/18 03:38 07:40 08:00 08:34 Temp 98.0 97.8 98.0 97.8 Pulse 66 63 83 Resp 18 18 B/P (MAP) 147/65 (92) 175/83 (113) 141/79 (99) Pulse Ox 96 95 O2 Delivery Room Air Room Air Room Air 07/24/18 11:00 Temp 97.9 97.9 Pulse 74 Resp 20 B/P (MAP) 157/79 (105) Pulse Ox 98 O2 Delivery Room Air Intake and Output 07/23/18 07/23/18 07/24/18 14:59 22:59 06:59 Intake Total 360 ml 60 ml Output Total 150 ml 200 ml Balance 210 ml -140 ml JOSH DICK MD Jul 24, 2018 15:22
[2018-07-24 17:10] LABS: BARBITURATES NEG (NEG); BENZODIAZEPINES NEG (NEG); CANNABINOIDS POS (NEG); COCAINE NEG (NEG); METHADONE NEG (NEG); OPIATES NEG (NEG); PHENCYCLIDINE NEG (NEG)
[2018-07-24 17:16] LABS: AMPHETAMINE/METHAMPHETAMINE NEG (NEG)
[2018-07-24] MEDS: ATORVASTATIN CALCIUM 40 MG TABLET. PO SCH (21:28)
[2018-07-24] MEDS: FAMOTIDINE 20 MG TABLET. PO SCH (21:29)
[2018-07-24] MEDS: ENOXAPARIN 40 MG/0.4 ML SYRINGE. SQ SCH (21:30)
[2018-07-24] MEDS: oxyCODONE/APAP 5/325 1 TAB TABLET PO PRN (21:32)
[2018-07-25 03:00] VITALS: BP 138/70
[2018-07-25 07:40] VITALS: BP 151/77
[2018-07-25] MEDS ORDERED: BARIUM SULFATE 60% 355 ML SUSP PO ONE (07:45)
[2018-07-25] MEDS ORDERED: SIMETHICONE/SOD BICARB/CITRIC ACID PACKET. PO ONE (07:45)
[2018-07-25] MEDS ORDERED: BARIUM SULFATE 340 GM SUSPENSION. PO ONE (07:45)
--- NOTE | 2018-07-25 08:44 | RAD ---
Indication: Difficulty swallowing. Intermittent pill dysphagia. TECHNIQUE: Fluoroscopy-guided esophagram with thin barium contrast with total fluoroscopy time of 0.6 minutes and multiple fluoroscopic images captured. The exam was technically difficult due to patient's inability to tolerate upright position secondary to bilateral amputation. COMPARISON: None FINDINGS: The suture winder hand images demonstrate no abnormality. Prompt transit of oral contrast is seen through the oropharynx and hypopharynx into the esophagus. Prompt transit of contrast is seen through the GE junction. No intraluminal filling defect seen in the esophagus. No strictures. IMPRESSION: Technically limited exam due to positioning patient. No esophageal mass or stricture seen. Patient may benefit from video swallow study. Electronically signed by: Nicola Pritchard DO (07/25/2018 8:42 AM) [facility]
[2018-07-25] MEDS: CHLORTHALIDONE 25 MG TABLET. PO SCH (09:42)
[2018-07-25] MEDS: BACLOFEN 10 MG TABLET. PO SCH ×3 (09:42→22:04)
[2018-07-25] MEDS: OSELTAMIVIR 75 MG CAPSULE PO SCH ×2 (09:42→22:04)
[2018-07-25] MEDS: predniSONE 20 MG TABLET PO SCH (09:43)
[2018-07-25] MEDS: ASPIRIN ENTERIC COATED 81 MG TABLET.DR. PO SCH (09:43)
[2018-07-25] MEDS: FAMOTIDINE 20 MG TABLET. PO SCH ×2 (09:43→22:06)
[2018-07-25] MEDS: oxyCODONE/APAP 5/325 1 TAB TABLET PO PRN (09:43)
[2018-07-25] MEDS: GABAPENTIN 400 MG CAPSULE. PO SCH ×3 (09:44→22:04)
[2018-07-25 11:00] VITALS: BP 156/87
--- NOTE | 2018-07-25 12:49 | PDOC ---
G I PROGRESS NOTE Subjective Complaints of pc epigastric pain (squeezy) and nausea. Has GI cocktail ordered ; not taking. On Pepcid. Physical Exam Lungs clear. RRR Abdomen soft. Epigastric tenderness. Review of Relevant I have reviewed the following items jerel (where applicable) has been applied. Labs Laboratory Tests Test 07/23/18 14:35 07/23/18 19:00 07/23/18 23:30 07/24/18 03:00 White Blood Count 3.4 x10^3/uL (4.0-11.0) 3.5 x10^3/uL (4.0-11.0) Red Blood Count 4.93 x10^6/uL (3.50-5.40) 4.74 x10^6/uL (3.50-5.40) Hemoglobin 14.9 g/dL (12.0-15.5) 14.3 g/dL (12.0-15.5) Hematocrit 44.3 % (36.0-47.0) 42.9 % (36.0-47.0) Mean Corpuscular Volume 90 fL (79-100) 91 fL (79-100) Mean Corpuscular Hemoglobin 30 pg (25-35) 30 pg (25-35) Mean Corpuscular Hemoglobin Concent 34 g/dL (31-37) 33 g/dL (31-37) Red Cell Distribution Width 13.3 % (11.5-14.5) 13.7 % (11.5-14.5) Platelet Count 116 x10^3/uL (140-400) 119 x10^3/uL (140-400) Neutrophils (%) (Auto) 52 % (31-73) 61 % (31-73) Lymphocytes (%) (Auto) 27 % (24-48) 25 % (24-48) Monocytes (%) (Auto) 20 % (0-9) 14 % (0-9) Eosinophils (%) (Auto) 0 % (0-3) 0 % (0-3) Basophils (%) (Auto) 1 % (0-3) 0 % (0-3) Neutrophils # (Auto) 1.8 x10^3uL (1.8-7.7) 2.1 x10^3uL (1.8-7.7) Lymphocytes # (Auto) 0.9 x10^3/uL (1.0-4.8) 0.9 x10^3/uL (1.0-4.8) Monocytes # (Auto) 0.7 x10^3/uL (0.0-1.1) 0.5 x10^3/uL (0.0-1.1) Eosinophils # (Auto) 0.0 x10^3/uL (0.0-0.7) 0.0 x10^3/uL (0.0-0.7) Basophils # (Auto) 0.0 x10^3/uL (0.0-0.2) 0.0 x10^3/uL (0.0-0.2) Segmented Neutrophils % 44 % (35-66) Band Neutrophils % 13 % (0-9) Lymphocytes % 27 % (24-48) Atypical Lymphocytes % (Manual) 5 % (0-0) Monocytes % 11 % (0-10) Platelet Estimate Decreased (ADEQUATE) Sodium Level 144 mmol/L (136-145) 145 mmol/L (136-145) Potassium Level 4.0 mmol/L (3.5-5.1) 4.4 mmol/L (3.5-5.1) Chloride Level 105 mmol/L (98-107) 106 mmol/L (98-107) Carbon Dioxide Level 32 mmol/L (21-32) 34 mmol/L (21-32) Anion Gap 7 (6-14) 5 (6-14) Blood Urea Nitrogen 16 mg/dL (7-20) 16 mg/dL (7-20) Creatinine 0.9 mg/dL (0.6-1.0) 0.8 mg/dL (0.6-1.0) Estimated GFR (Cockcroft-Gault) 77.8 89.1 BUN/Creatinine Ratio 18 (6-20) 20 (6-20) Glucose Level 117 mg/dL (70-99) 126 mg/dL (70-99) Calcium Level 9.1 mg/dL (8.5-10.1) 9.2 mg/dL (8.5-10.1) Magnesium Level 2.3 mg/dL (1.8-2.4) Total Bilirubin 0.5 mg/dL (0.2-1.0) 0.5 mg/dL (0.2-1.0) Aspartate Amino Transf (AST/SGOT) 60 U/L (15-37) 52 U/L (15-37) Alanine Aminotransferase (ALT/SGPT) 34 U/L (14-59) 37 U/L (14-59) Alkaline Phosphatase 77 U/L (46-116) 73 U/L (46-116) Troponin I Quantitative 0.021 ng/mL (0.000-0.055) 0.052 ng/mL (0.000-0.055) 0.039 ng/mL (0.000-0.055) Total Protein 7.5 g/dL (6.4-8.2) 7.1 g/dL (6.4-8.2) Albumin 3.3 g/dL (3.4-5.0) 3.2 g/dL (3.4-5.0) Albumin/Globulin Ratio 0.8 (1.0-1.7) 0.8 (1.0-1.7) Triglycerides Level 209 mg/dL (0-150) Cholesterol Level 228 mg/dL (0-200) LDL Cholesterol, Calculated 146 mg/dL (0-100) VLDL Cholesterol, Calculated 42 mg/dL (0-40) Non-HDL Cholesterol Calculated 188 mg/dL (0-129) HDL Cholesterol 40 mg/dL (40-60) Cholesterol/HDL Ratio 5.7 Lipase 806 U/L (73-393) Test 07/24/18 15:30 Urine Opiates Screen Neg (NEG) Urine Methadone Screen Neg (NEG) Urine Barbiturates Neg (NEG) Urine Phencyclidine Screen Neg (NEG) Urine Amphetamine/Methamphetamine Neg (NEG) Urine Benzodiazepines Screen Neg (NEG) Urine Cocaine Screen Neg (NEG) Urine Cannabinoids Screen Pos (NEG) Urine Ethyl Alcohol Neg (NEG) Laboratory Tests Test 07/24/18 15:30 Urine Opiates Screen Neg (NEG) Urine Methadone Screen Neg (NEG) Urine Barbiturates Neg (NEG) Urine Phencyclidine Screen Neg (NEG) Urine Amphetamine/Methamphetamine Neg (NEG) Urine Benzodiazepines Screen Neg (NEG) Urine Cocaine Screen Neg (NEG) Urine Cannabinoids Screen Pos (NEG) Urine Ethyl Alcohol Neg (NEG) Vitals/I & O Vital Sign - Last 24 Hours 2/22/19 07/24/18 07/24/18 07/24/18 15:10 19:00 19:45 21:32 Temp 97.9 97.8 97.9 97.8 Pulse 60 69 Resp 18 18 B/P (MAP) 142/76 (98) 170/83 (112) Pulse Ox 96 94 O2 Delivery Room Air Room Air Room Air Room Air 07/24/18 07/25/18 07/25/18 07/25/18 22:34 03:00 07:40 07:40 Temp 97.5 97.8 97.9 97.5 97.8 97.9 Pulse 63 58 61 Resp 18 17 16 B/P (MAP) 129/67 (87) 138/70 (92) 151/77 (101) Pulse Ox 96 94 93 O2 Delivery Room Air Room Air Room Air Room Air 07/25/18 07/25/18 09:43 10:40 Resp 16 Pulse Ox 93 O2 Delivery Room Air Room Air Intake and Output 07/24/18 07/24/18 07/25/18 14:59 22:59 06:59 Intake Total 500 ml 0 ml Output Total 800 ml 600 ml Balance -300 ml -600 ml Problem List Problems Medical Problems: (1) Chest pain Status: Acute Assessment GERD? Just not apparently visible at EGD. Plan of Care Note Continue scheduled Pepcid. Encourage GI cocktail for this. JOSEF BRAN MD Jul 25, 2018 12:49
[2018-07-25 15:10] VITALS: BP 142/80
--- NOTE | 2018-07-25 15:29 | PDOC ---
PROGRESS NOTES Chief Complaint Chief Complaint A/P: Recent diagnosis of Influenza, cough, n/v, diarrhea - improved atypical chest pain seems to be related to pill that "got stuck" yesterday. GERD esophageal spasm? History of bilateral lower extremity amputation, etiology undetermined patient relates it was done in [place] after spending 1 year on life support. Plan: follow recommendations from consultants Cardiology has signed off but recommended a GI evaluation which has been done, recommending continuing with gi cocktail for relief of her symptoms. will order a video swallow GI eval yielded the following recommendations: -- Start w/ esophagram re: pill-swallowing complaints. Could also consider CTA A/ P re: chronic post-prandial pain - could also pursue this as outpt. 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 Can try GI cocktail or dicyclomine PRN, could also consider Carafate. Recently had diarrhea but has h/o constipation - monitor stooling, check studies or treat constipation if indicated. ?mechanical soft diet considering dental issues Request records from [facility] re: manometry, etc. History of Present Illness History of Present Illness Patient overall in no apparent distress, patient with no further chest discomfort, her discomfort is mostly over the epigastrium and the retrosternal area. She complains that with certain pills she feels that certain pills get "stuck" reassurance provided Vitals Vitals Vital Signs Date Time Temp Pulse Resp B/P (MAP) Pulse Ox O2 Delivery O2 Flow Rate FiO2 07/25/18 11:00 97.8 79 24 156/87 (110) 98 Room Air 97.8 Physical Exam General: Alert, Oriented X3, Cooperative, No acute distress Heart: Regular rate (SR), Normal S1, Normal S2, Other (2/6 diastolic murmur to ERIN border) Abdomen: Soft, No tenderness Extremities: No cyanosis, No edema, Other (bi;lateral BKA ) Skin: No significant lesion Labs LABS Laboratory Tests Test 07/24/18 15:30 Urine Opiates Screen Neg (NEG) Urine Methadone Screen Neg (NEG) Urine Barbiturates Neg (NEG) Urine Phencyclidine Screen Neg (NEG) Urine Amphetamine/Methamphetamine Neg (NEG) Urine Benzodiazepines Screen Neg (NEG) Urine Cocaine Screen Neg (NEG) Urine Cannabinoids Screen Pos (NEG) Urine Ethyl Alcohol Neg (NEG) Review of Systems Review of Systems 10 point negative, only pertinent as per HPI Assessment and Plan Assessmemt and Plan Problems Medical Problems: (1) Chest pain Status: Acute Comment Review of Relevant I have reviewed the following items jerel (where applicable) has been applied. Labs Laboratory Tests Test 07/23/18 19:00 07/23/18 23:30 07/24/18 03:00 07/24/18 15:30 Troponin I Quantitative 0.052 ng/mL (0.000-0.055) 0.039 ng/mL (0.000-0.055) White Blood Count 3.5 x10^3/uL (4.0-11.0) Red Blood Count 4.74 x10^6/uL (3.50-5.40) Hemoglobin 14.3 g/dL (12.0-15.5) Hematocrit 42.9 % (36.0-47.0) Mean Corpuscular Volume 91 fL (79-100) Mean Corpuscular Hemoglobin 30 pg (25-35) Mean Corpuscular Hemoglobin Concent 33 g/dL (31-37) Red Cell Distribution Width 13.7 % (11.5-14.5) Platelet Count 119 x10^3/uL (140-400) Neutrophils (%) (Auto) 61 % (31-73) Lymphocytes (%) (Auto) 25 % (24-48) Monocytes (%) (Auto) 14 % (0-9) Eosinophils (%) (Auto) 0 % (0-3) Basophils (%) (Auto) 0 % (0-3) Neutrophils # (Auto) 2.1 x10^3uL (1.8-7.7) Lymphocytes # (Auto) 0.9 x10^3/uL (1.0-4.8) Monocytes # (Auto) 0.5 x10^3/uL (0.0-1.1) Eosinophils # (Auto) 0.0 x10^3/uL (0.0-0.7) Basophils # (Auto) 0.0 x10^3/uL (0.0-0.2) Sodium Level 145 mmol/L (136-145) Potassium Level 4.4 mmol/L (3.5-5.1) Chloride Level 106 mmol/L (98-107) Carbon Dioxide Level 34 mmol/L (21-32) Anion Gap 5 (6-14) Blood Urea Nitrogen 16 mg/dL (7-20) Creatinine 0.8 mg/dL (0.6-1.0) Estimated GFR (Cockcroft-Gault) 89.1 BUN/Creatinine Ratio 20 (6-20) Glucose Level 126 mg/dL (70-99) Calcium Level 9.2 mg/dL (8.5-10.1) Total Bilirubin 0.5 mg/dL (0.2-1.0) Aspartate Amino Transf (AST/SGOT) 52 U/L (15-37) Alanine Aminotransferase (ALT/SGPT) 37 U/L (14-59) Alkaline Phosphatase 73 U/L (46-116) Total Protein 7.1 g/dL (6.4-8.2) Albumin 3.2 g/dL (3.4-5.0) Albumin/Globulin Ratio 0.8 (1.0-1.7) Triglycerides Level 209 mg/dL (0-150) Cholesterol Level 228 mg/dL (0-200) LDL Cholesterol, Calculated 146 mg/dL (0-100) VLDL Cholesterol, Calculated 42 mg/dL (0-40) Non-HDL Cholesterol Calculated 188 mg/dL (0-129) HDL Cholesterol 40 mg/dL (40-60) Cholesterol/HDL Ratio 5.7 Lipase 806 U/L (73-393) Urine Opiates Screen Neg (NEG) Urine Methadone Screen Neg (NEG) Urine Barbiturates Neg (NEG) Urine Phencyclidine Screen Neg (NEG) Urine Amphetamine/Methamphetamine Neg (NEG) Urine Benzodiazepines Screen Neg (NEG) Urine Cocaine Screen Neg (NEG) Urine Cannabinoids Screen Pos (NEG) Urine Ethyl Alcohol Neg (NEG) Laboratory Tests Test 07/24/18 15:30 Urine Opiates Screen Neg (NEG) Urine Methadone Screen Neg (NEG) Urine Barbiturates Neg (NEG) Urine Phencyclidine Screen Neg (NEG) Urine Amphetamine/Methamphetamine Neg (NEG) Urine Benzodiazepines Screen Neg (NEG) Urine Cocaine Screen Neg (NEG) Urine Cannabinoids Screen Pos (NEG) Urine Ethyl Alcohol Neg (NEG) Medications Current Medications Nitroglycerin (Nitrostat) 0.4 mg PRN Q5MIN PRN SL CP RATING > 1/10; Start 07/23 at 14:15; Stop 07/24/18 at 14:14; Status DC Ondansetron HCl (Zofran) 4 mg PRN Q8HRS PRN IV NAUSEA/VOMITING; Start 07/23/18 at 15:45; Stop 07/24/18 at 15:44; Status DC Fentanyl Citrate (Fentanyl 2ml Vial) 50 mcg PRN Q1HR PRN IV PAIN; Start at 15:45; Stop 07/24/18 at 15:44; Status DC Nitroglycerin (Nitrostat) 0.4 mg PRN Q5MIN PRN SL CHEST PAIN Last administered on 07/23/18at 15:53; Start 07/23/18 at 15:45; Stop 07/24/18 at 12:54; Status DC Diazepam (Valium) 5 mg 1X ONCE PO Last administered on 07/23/18at 20:58; Start 07/23/18 at 18:30; Stop 07/23/18 at 18:31; Status DC Enoxaparin Sodium (Lovenox Per Pharmacy Prophylaxis Dosing) 1 each PRN DAILY PRN MC SEE COMMENTS; Start 07/23/18 at 18:30; Stop 07/24/18 at 12:54; Status DC Guaifenesin (Robitussin Dm) 10 ml PRN Q6HRS PRN PO COUGH Last administered on 20:57; Start 07/23/18 at 18:30 Oxycodone/ Acetaminophen (Percocet 5/325) 1 tab PRN Q4HRS PRN PO PAIN Last administered on 07/25/18 09:43; Start 07/23/18 at 18:30 Enoxaparin Sodium (Lovenox 40mg Syringe) 40 mg Q24H SQ Last administered on 21:30; Start 07/23/18 at 21:00 Baclofen (Lioresal) 20 mg TID PO Last administered on 07/25/18 09:42; Start at 21:00 Gabapentin (Neurontin) 1,200 mg TID PO Last administered on 07/25/18 09:44; Start 07/23/18 at 21:00 Oseltamivir Phosphate (Tamiflu) 75 mg BID PO Last administered on 07/25/18 09: 42; Start 07/24/18 at 11:30; Stop 07/26/18 at 21:01 Prednisone (Prednisone) 60 mg DAILY PO Last administered on 07/25/18at 09:43; Start 07/24/18 at 11:30 Atorvastatin Calcium (Lipitor) 40 mg QHS PO Last administered on 07/24/18at 21: 28; Start 07/24/18 at 21:00 Aspirin (Ecotrin) 81 mg DAILYWBKFT PO Last administered on 07/25/18 09:43; Start 07/24/18 at 14:00 Chlorthalidone (Thalitone) 25 mg DAILY PO Last administered on 07/25/18 09:42 ; Start 07/24/18 at 14:00 Famotidine (Pepcid) 20 mg BID PO Last administered on 07/25/18 09:43; Start at 21:00 Multi-Ingredient Mouthwash/Gargle (Gi Cocktail) 20 ml PRN QID PRN PO CHEST/ epigastric PAIN; Start 07/24/18 at 14:15 Dicyclomine HCl (Bentyl) 10 mg PRN QID PRN PO chest/abd pain; Start 07/24/18 at 14:15 Barium Sulfate (E-Z-Hd) 340 gm 1X ONCE PO ; Start 07/25/18 at 07:45; Stop 07/25 at 07:46; Status DC Barium Sulfate (Liquid E-Z Paque) 355 ml 1X ONCE PO Last administered on at 07:45; Start 07/25/18 at 07:45; Stop 07/25/18 at 07:46; Status DC Simethicone/ Sodium Bicarb/ Citric Ac (E-Z-Gas) 1 packet 1X ONCE PO ; Start at 07:45; Stop 07/25/18 at 07:46; Status DC Active Scripts Active Reported Prednisone 20 Mg Tablet 3 Tab PO DAILY Tamiflu (Oseltamivir Phosphate) 30 Mg Capsule 75 Mg PO BID Baclofen 20 Mg Tablet 1 Tab PO TID Gabapentin 800 Mg Tablet 1,200 Mg PO TID Vitals/I & O Vital Sign - Last 24 Hours 07/24/18 07/24/18 07/24/18 07/24/18 19:00 19:45 21:32 22:34 Temp 97.8 97.5 97.8 97.5 Pulse 69 63 Resp 18 18 B/P (MAP) 170/83 (112) 129/67 (87) Pulse Ox 94 96 O2 Delivery Room Air Room Air Room Air Room Air 07/25/18 07/25/18 07/25/18 07/25/18 03:00 07:40 07:40 09:43 Temp 97.8 97.9 97.8 97.9 Pulse 58 61 Resp 17 16 16 B/P (MAP) 138/70 (92) 151/77 (101) Pulse Ox 94 93 O2 Delivery Room Air Room Air Room Air Room Air 07/25/18 07/25/18 10:40 11:00 Temp 97.8 97.8 Pulse 79 Resp 24 B/P (MAP) 156/87 (110) Pulse Ox 93 98 O2 Delivery Room Air Room Air Intake and Output 07/24/18 07/24/18 07/25/18 15:00 23:00 07:00 Intake Total 500 ml 0 ml Output Total 800 ml 600 ml Balance -300 ml -600 ml JOSH DICK MD Jul 25, 2018 15:29
[2018-07-25 19:50] VITALS: BP 163/73
[2018-07-25] MEDS: DICYCLOMINE HCL 10 MG CAPSULE PO PRN (22:04)
[2018-07-25] MEDS: ATORVASTATIN CALCIUM 40 MG TABLET. PO SCH (22:04)
[2018-07-25] MEDS: ENOXAPARIN 40 MG/0.4 ML SYRINGE. SQ SCH (22:05)
[2018-07-25 23:23] VITALS: BP 146/67
[2018-07-26 03:35] VITALS: BP 145/77
[2018-07-26 07:55] VITALS: BP 125/68
[2018-07-26] MEDS: DICYCLOMINE HCL 10 MG CAPSULE PO PRN (08:07)
[2018-07-26] MEDS: FAMOTIDINE 20 MG TABLET. PO SCH (08:07)
[2018-07-26] MEDS: OSELTAMIVIR 75 MG CAPSULE PO SCH (08:07)
[2018-07-26] MEDS: ASPIRIN ENTERIC COATED 81 MG TABLET.DR. PO SCH (08:07)
[2018-07-26] MEDS: GABAPENTIN 400 MG CAPSULE. PO SCH ×2 (08:07→16:24)
[2018-07-26] MEDS: BACLOFEN 10 MG TABLET. PO SCH ×2 (08:08→16:24)
[2018-07-26] MEDS: predniSONE 20 MG TABLET PO SCH (08:08)
[2018-07-26] MEDS: CHLORTHALIDONE 25 MG TABLET. PO SCH (08:08)
[2018-07-26 10:54] VITALS: BP 127/71
[2018-07-26] MEDS ORDERED: ATOR40TA59 PO (11:06)
[2018-07-26] MEDS ORDERED: ASPI-612 PO (11:06)
[2018-07-26] MEDS ORDERED: DICY10CA3 PO (11:06)
[2018-07-26] MEDS ORDERED: Lido:Maalox 1:1 PO (11:06)
[2018-07-26] MEDS ORDERED: PANT40GR PO (11:06)
[2018-07-26] MEDS ORDERED: CHLO25TA10 PO (11:06)
--- NOTE | 2018-07-26 12:36 | PDOC ---
G I PROGRESS NOTE Subjective Continues with epigastric pain pc. Did not try GI cocktail. Physical Exam Lungs clear. RRR Abdomen soft, not distended. Epigastric tenderness. Review of Relevant I have reviewed the following items jerel (where applicable) has been applied. Labs Laboratory Tests Test 07/24/18 15:30 Urine Opiates Screen Neg (NEG) Urine Methadone Screen Neg (NEG) Urine Barbiturates Neg (NEG) Urine Phencyclidine Screen Neg (NEG) Urine Amphetamine/Methamphetamine Neg (NEG) Urine Benzodiazepines Screen Neg (NEG) Urine Cocaine Screen Neg (NEG) Urine Cannabinoids Screen Pos (NEG) Urine Ethyl Alcohol Neg (NEG) Vitals/I & O Vital Sign - Last 24 Hours 07/25/18 07/25/18 07/25/18 07/25/18 15:10 19:50 20:01 23:23 Temp 97.8 98.1 97.8 97.8 98.1 97.8 Pulse 68 63 52 Resp 16 16 16 B/P (MAP) 142/80 (100) 163/73 (103) 146/67 (93) Pulse Ox 94 95 96 O2 Delivery Room Air Room Air Room Air Room Air 07/26/18 07/26/18 07/26/18 07/26/18 03:35 07:40 07:55 10:54 Temp 97.9 97.9 98.0 97.9 97.9 98.0 Pulse 56 58 59 Resp 16 16 16 B/P (MAP) 145/77 (99) 125/68 (87) 127/71 (89) Pulse Ox 93 96 97 O2 Delivery Room Air Room Air Room Air Room Air Intake and Output 07/25/18 07/25/18 07/26/18 15:00 23:00 07:00 Intake Total 480 ml 800 ml Output Total 1200 ml 1000 ml Balance 480 ml -400 ml -1000 ml Problem List Problems Medical Problems: (1) Chest pain Status: Acute Assessment Suspect EGD-negative GERD. Plan of Care: Continue current Tx, Mgmt Plan of Care Note Try GI cocktail. Note plans to dismiss; told staff to have her call office to schedule outpatient EGD. JOSEF BRAN MD Jul 26, 2018 12:36
--- NOTE | 2018-07-26 12:52 | PDOC3 ---
Discharge Summary Visit Information Date of Admission: Jul 23, 2018 Date of Discharge: Jul 26, 2018 Admitting Diagnosis: atypical chest pain Final Diagnosis Recent diagnosis of Influenza, cough, n/v, diarrhea - improved atypical chest pain seems to be related to pill that "got stuck" GERD esophageal spasm? History of bilateral lower extremity amputation, etiology undetermined patient relates it was done in [place] after spending 1 year on life support. Brief Hospital Course Allergies Allergies Coded Allergies Type Severity Reaction Last Updated Verified Penicillins Allergy Intermediate 07/24/18 Yes albuterol Allergy Intermediate 07/24/18 Yes ciprofloxacin Allergy Intermediate 07/24/18 Yes erythromycin base Allergy Intermediate 07/24/18 Yes latex Allergy Intermediate Hives 10/10/17 Yes morphine Allergy Intermediate 07/24/18 Yes Vital Signs Vital Signs Date Time Temp Pulse Resp B/P (MAP) Pulse Ox O2 Delivery O2 Flow Rate FiO2 07/26/18 10:54 98.0 59 16 127/71 (89) 97 Room Air 98.0 Lab Results Laboratory Tests Test 07/24/18 15:30 Urine Opiates Screen Neg (NEG) Urine Methadone Screen Neg (NEG) Urine Barbiturates Neg (NEG) Urine Phencyclidine Screen Neg (NEG) Urine Amphetamine/Methamphetamine Neg (NEG) Urine Benzodiazepines Screen Neg (NEG) Urine Cocaine Screen Neg (NEG) Urine Cannabinoids Screen Pos (NEG) Urine Ethyl Alcohol Neg (NEG) Brief Hospital Course Ms. Marrero is a 58 old female who presented with history of severe chest discomfort this seemed to be retrosternal in nature. The patient describes multiple episodes were certain pills at stuck while attempting to swallow. The patient did have a barium swallow evaluation after it was determined that her symptoms were not related to cardiac nature. The patient was seen also by GI as recommended by our cardiological protection consultant. She has history of GERD and will benefit from GI acid suppression. Doughnut Icer has recommended for an EGD in the outpatient setting and to allow for present therapy with proton pump inhibitors and GI cocktail to take effect. If the patient continues to have her severe symptoms she will most likely require a EGD and manometry and other tests that can be certainly done in the outpatient setting. The patient did not percent hematemesis no black tarry stools no other concerning instead will warrant inpatient workup. She is medically stable upon discharge CONCERNS AND QUESTIONS WERE ADDRESSED THE BEST OF MY ABILITIES. SIGNS AND SYMPTOMS OF ALARM WERE DISCUSSED PRIOR TO DISCHARGE SHE ACKNOWLEDGED UNDERSTANDING OF THE INSTRUCTIONS. Physical exam: Cardia vascular the S1-S2 regular rhythm no murmurs as a rubs lungs were clear to auscultation bilaterally Abdomen is soft nontender no rebound tenderness no peritoneal signs Discharge Information Condition at Discharge: Improved Follow Up: Weeks Disposition/Orders: D/C to Home Scheduled Aspirin (Aspirin Ec) 81 Mg Tablet., 81 MG PO DAILYWBKFT for antiplatelet for 30 Days, #30 Prescribed by: JOSH DICK MD on 07/26/18 1106 Atorvastatin Calcium (Atorvastatin Calcium) 40 Mg Tablet, 40 MG PO QHS for dyslipide for 30 Days, #30 Prescribed by: JOSH DICK MD on 07/26/18 1106 Baclofen (Baclofen) 20 Mg Tablet, 1 TAB PO TID, #90 Ref 2 (Reported) Entered as Reported by: GRANT BARRIOS on 10/10/17732 Last Action: Converted on 07/23/181829 by LAY RUIZ Chlorthalidone (Chlorthalidone ) 25 Mg Tablet, 25 MG PO DAILY for anithypertensive for 30 Days, #30 Prescribed by: JOSH DICK MD on 07/26/18 1106 Gabapentin (Gabapentin) 800 Mg Tablet, 1,200 MG PO TID, (Reported) Entered as Reported by: GRANT BARRIOS on 10/10/17732 Last Action: Converted on 07/23/181829 by LAY RUIZ Oseltamivir Phosphate (Tamiflu) 30 Mg Capsule, 75 MG PO BID for flu symptoms, # 10 (Reported) Entered as Reported by: MAINE CARBALLO on 07/23/181945 Last Action: Continued on 07/24/18 1111 by FRANKLIN OROZCO Pantoprazole Sodium (Protonix) 40 Mg , 40 MG PO DAILY for GERD for 30 Days, #30 Prescribed by: JOSH DICK MD on 07/26/18 1106 Prednisone (Prednisone) 20 Mg Tablet, 3 TAB PO DAILY for asthma, #5 (Reported) Entered as Reported by: MAINE CARBALLO on 07/24/18124 Last Action: Continued on 07/24/18 1111 by FRANKLIN OROZCO Scheduled PRN Dicyclomine Hcl (Dicyclomine Hcl) 10 Mg Capsule, 10 MG PO PRN QID PRN for chest/ abd pain for 10 Days, #30 Prescribed by: JOSH DICK MD on 07/26/18 1106 [Lido:Maalox 1:1] 20 ML ORAL.SUSP, 20 ML PO PRN QID PRN for CHEST/epigastric PAIN for 14 Days, #580 Prescribed by: JOSH DICK MD on 07/26/18 1106 Discontinued Medications Hydrocodone/Apap 7.5-325 ([place] 7.5-325 Tablet) 1 Each Tablet, 1 TAB PO Q8HRS PRN for PAIN, Ref 0 (Reported) Entered as Reported by: GRANT BARRIOS on 10/10/17 0735 Last Action: Discontinued on 07/23/181812 by LAURA ANDRADE Loratadine (Claritin) 10 Mg Tablet, 1 TAB PO DAILY, #30 Ref 5 (Reported) Entered as Reported by: GRANT BARRIOS on 10/10/17 0738 Last Action: Discontinued on 07/23/181812 by LAURA ANDRADE Montelukast Sodium (Montelukast Sodium Tablet) 10 Mg Tablet, 1 TAB PO DAILY, # 30 Ref 5 (Reported) Entered as Reported by: GRANT BARRIOS on 10/10/17 0738 Last Action: Discontinued on 07/23/181812 by LAURA ANDRADE Oxycodone Hcl (Oxycontin) 30 Mg Tab.er.12h, 30 MG PO TID PRN PRN for PAIN, ( Reported) Entered as Reported by: GRANT BARRIOS on 10/10/17 0734 Last Action: Discontinued on 07/23/181812 by JOSH JAIN MD Jul 26, 2018 12:52
[2018-07-26 14:07] VITALS: BP 132/74
--- NOTE | 2018-07-26 18:24 | NUR ---
DISCHARGE INSTRUCTIONS DISCUSSED WITH PATIENT. [facility]. PATIENTS IV REMOVED AND TELE OFF. PATIENT HAS NO QUESTIONS AT TIME OF DISCHARGE. PATIENT REFUSED PRESCRIPTION FOR PROTONIX. PATIENT HAS ALL BELONGINGS AT TIME OF DISCHARGE. PATIENT STABLE AT TIME OF DISCHARGE. PATIENT TAKEN TO [facility] PER WHEELCHAIR BY TRANSPORTATION PERSONNEL.
== END 2018-07-26 17:55 | disposition home or self-care (01) | DRG 392 ==
LOC: ER 14:08 → 2 NORTH 15:37
PROVIDERS: ADMIT Internal Medicine; ATTEND Internal Medicine
DX: K21.9 Gastro-esophageal reflux disease without esophagitis (principal); K22.4 Dyskinesia of esophagus; R07.89 Other chest pain; G62.9 Polyneuropathy, unspecified; E78.5 Hyperlipidemia, unspecified; M94.0 Chondrocostal junction syndrome [Tietze]; G89.29 Other chronic pain; I10 Essential (primary) hypertension; I35.1 Nonrheumatic aortic (valve) insufficiency; J40 Bronchitis, not specified as acute or chronic; M19.90 Unspecified osteoarthritis, unspecified site; M79.7 Fibromyalgia; Z83.3 Family history of diabetes mellitus; Z79.899 Other long term (current) drug therapy; Z89.511 Acquired absence of right leg below knee; Z90.49 Acquired absence of other specified parts of digestive tract; Z89.512 Acquired absence of left leg below knee; Z99.3 Dependence on wheelchair; Z88.5 Allergy status to narcotic agent; Z88.0 Allergy status to penicillin; Z88.8 Allergy status to other drugs, medicaments and biological substances; Z88.1 Allergy status to other antibiotic agents; Z91.040 Latex allergy status
CPT/HCPCS: 36415; 71045; 74220; 80053; 80061; 80307; 83690; 83735; 84484; 85007; 85025; 93005; 93306; 96372; J1650; J7512; 92610; 99285-25

== ENCOUNTER → 2021-07-23 | Outpatient (CLI) | payer OTHER, MEDICAID ==
[~2021-07-23] MED LIST changes: +ASPI-886 PO; +ATOR40TA59 PO; +CHLO25TA10 PO; +DICY10CA3 PO; +Lido:Maalox 1:1 PO; +MONT10TA49 PO; -MONT10TA9 PO; +OSEL30CA PO; +PANT40GR PO; +PRED20TA PO
--- NOTE | 2021-07-24 07:45 | CARD ---
MR#: [id number] Date of Study: 07/23/2021 Ordering Physician: MESHA ARIZA, Referring Physician: MESHA ARIZA, Tech: Funmilayo Rojas, [facility] APPROVED REPORT EXAM: Two-dimensional and M-mode echocardiogram with Doppler and color Doppler. Other Information Quality : AverageHR: 71bpm INDICATION Chest Pain Leg pain RISK FACTORS Smoking 2D DIMENSIONS Left Atrium(2D)2.9 (1.6-4.0cm)IVSd0.8 (0.7-1.1cm) Aortic Root(2D)2.5 (2.0-3.7cm)LVDd4.8 (3.9-5.9cm) LVOT Diameter2.0 (1.8-2.4cm)PWd0.8 (0.7-1.1cm) LVDs3.8 (2.5-4.0cm)FS (%) 20.3 % SV44.6 mlLVEF(%)41.5 (>50%) Aortic Valve AoV Peak Maynor.148.0cm/sAoV VTI30.3cm AO Peak GR.8.8mmHgLVOT Peak Maynor.110.0cm/s LVOT VTI 26.52cmAO Mean GR.4mmHg DOUGLAS (VMAX)1.05mt2TGW (VTI)2.84cm2 AI P 1/2 Tsca746oc Mitral Valve MV E Orvhlcxx05.5cm/sMV DECEL RFOB320rp MV A Xydfleoj58.1cm/sMV E Mean Gr.1mmHg MV UPZ60flQ/A Ratio0.9 MVA (PHT)4.14cm2 TDI E/Lateral E'10.2E/Medial E'7.7 Pulmonary Valve PV Peak Byaayghu55.0cm/sPV Peak Grad.3mmHg Tricuspid Valve TR P. Jilhcwft172nz/sRAP YIXXMGOJ7flFd TR Peak Gr.83raCiRAEP11hjXp Pulmonary Vein S1 Fjnhpjtc92.7cm/sD2 Wohmwvzw17.8cm/s PVa ogktlepy715wrhx LEFT VENTRICLE The left ventricle is normal size. There is normal left ventricular wall thickness. The left ventricu lar systolic function is normal. The Ejection Fraction is 55-60%. There is normal LV segmental wall m otion. Transmitral Doppler flow pattern is Grade I-abnormal relaxation pattern. RIGHT VENTRICLE The right ventricle is normal size. There is normal right ventricular wall thickness. The right ventr icular systolic function is normal. ATRIA The left atrium size is normal. The right atrium size is normal. The interatrial septum is intact wit h no evidence for an atrial septal defect or patent foramen ovale as noted on 2-D or Doppler imaging. AORTIC VALVE The aortic valve is thickened but opens well. Doppler and Color Flow revealed mild aortic regurgitati on. Calculated aortic valve area is 2.39 cm2 with maximum pressure gradient of 11 mmHg and mean press ure gradient of 6 mmHg. There is no significant aortic valvular stenosis. MITRAL VALVE The mitral valve is normal in structure and function. There is no evidence of mitral valve prolapse. There is no mitral valve stenosis. Doppler and Color-flow revealed trace mitral regurgitation. TRICUSPID VALVE The tricuspid valve is normal in structure and function. Doppler and Color Flow revealed trace tricus pid regurgitation with an estimated PAP of 29 mmHg. There is no tricuspid valve stenosis. PULMONIC VALVE The pulmonic valve is not well visualized. Doppler and Color Flow revealed trace pulmonic valvular re gurgitation. GREAT VESSELS The aortic root is normal in size. The ascending aorta is normal in size. The IVC is normal in size a nd collapses >50% with inspiration. PERICARDIAL EFFUSION There is no evidence of significant pericardial effusion. Critical Notification Critical Value: No <Conclusion> The left ventricular systolic function is normal. The Ejection Fraction is 55-60%. There is normal LV segmental wall motion. Transmitral Doppler flow pattern is Grade I-abnormal relaxation pattern. Mild aortic regurgitation. Trace mitral regurgitation. Trace tricuspid regurgitation with an estimated PAP of 29 mmHg. There is no evidence of significant pericardial effusion. Signed by : Mesha Ariza, Electronically Approved : 07/24/2021 07:44:42
--- NOTE | 2021-09-05 13:48 | RAD ---
MR#: [id number] Date of Study: 07/23/2021 Ordering Physician: MESHA ARIAZ, Referring Physician: MESHA ARIZA Tech: Funmilayo Balbuena RDMS, RVT, RTR APPROVED REPORT Patient Location: OUT-PATIENT Indications PAD VELOCITY AND DOPPLER WAVEFORM ANALYSIS RIGHT cm/secWaveformSeverity LEFT cm/secWaveform Severity pCFA 231.4pCFA 327.8 Prof Fem Art. 145.2Prof Fem Art. 162.0 Fem Art Prox. 190.2Fem Art Prox. 91.6 Fem Art Mid. 218.5Fem Art Mid. 77.3 Fem Art Dist. 135.0Fem Art Dist. 82.0 Pop Art(AK) 43.0Pop Art(AK) 25.8 Findings Grayscale images of peripheral arteries bilateral lower extremities showed severe atherosclerotic sharyn que involving bilateral common femoral and superficial femoral arteries. Spectral waveform and color duplex analysis showed triphasic waveforms in bilateral common femoral arteries but with significant ly elevated velocities suggestive of greater than 70% stenosis. The right superficial femoral artery showed monophasic waveforms with elevated velocities in the midsegment consistent with 50 to 69% savana nosis. The right popliteal artery showed diminished velocities with monophasic waveforms consistent with inflow disease. The left superficial femoral and popliteal arteries showed monophasic waveforms with diminished velocities consistent with inflow disease. Patient has a history of bilateral below the knee amputations. Compared to prior arterial duplex scan from 2018, the stenosis in bilateral c ommon femoral arteries appears to have worsened. Critical Notification Critical Value: No <Conclusion> Bilateral lower extremity arterial duplex scan showed significant stenoses involving bilateral common femoral arteries and right superficial femoral artery. Signed by : Mesha Ariza, Electronically Approved : 09/05/2021 13:47:36
== END ==
LOC: ECHO 13:20
PROVIDERS: ATTEND Internal Medicine Cardiovascular Disease
DX: I35.1 Nonrheumatic aortic (valve) insufficiency (principal); I70.203 Unspecified atherosclerosis of native arteries of extremities, bilateral legs; Z89.519 Acquired absence of unspecified leg below knee
CPT/HCPCS: 93306; 93925; C8929

== ENCOUNTER 2021-10-01 08:05 | Outpatient (CLI) | payer OTHER, MEDICAID ==
[2021-10-01] VITALS (12 sets, daily range): BP systolic 109–142; BP diastolic 49–76
[~2021-10-01] VITALS: Ht 132.1 cm; Wt 147.0 kg
[2021-10-01] MEDS ORDERED: IODIXANOL 320 200 ML in NS 200 ML IART ONE (08:15)
[2021-10-01] MEDS ORDERED: OXYC-314 PO (09:18)
[2021-10-01] MEDS ORDERED: DULO60CA7 PO (09:18)
[2021-10-01] MEDS ORDERED: MONT10TA49 PO (09:18)
[2021-10-01] MEDS ORDERED: IBUP-1007 PO (09:18)
[2021-10-01] MEDS ORDERED: CLONAZEPAM1 MG PO (09:18)
[2021-10-01] MEDS ORDERED: CLIN-94 PO (09:18)
[2021-10-01] MEDS ORDERED: LORA10TA68 PO (09:18)
[2021-10-01] MEDS ORDERED: CRESTOR40 MG PO (09:18)
[2021-10-01] MEDS ORDERED: MIDAZOLAM HCL/PF 5 MG/5 ML VIAL. ONE (10:22)
[2021-10-01] MEDS ORDERED: HEPARIN for IV BOLUS 10,000 UNIT/10 ML VIAL. ONE (10:23)
[2021-10-01] MEDS ORDERED: fentaNYL PF VIAL 100 MCG/2 ML VIAL ONE (10:23)
[2021-10-01] MEDS ORDERED: VERAPAMIL 5 MG/2 ML VIAL. ONE (10:23)
[2021-10-01] MEDS ORDERED: LIDOCAINE 1% PF 2 ML VIAL. ONE (10:25)
--- NOTE | 2021-10-01 10:26 | PDOC ---
MODERATE SEDATION ASSESSMENT RISKS/ALTERNATIVES Risks/Alternatives Risks and alternatives of this type of sedation and procedure discussed with: RISK/ALTERNATIVES: Patient H & P ON CHART H & P H & P on chart and reviewed for co-morbid conditions and appropriate labs. H&P ON CHART: Yes STATUS PREG STATUS ASSESSED: N/A MEDS/ALLERGIES REVIEWED Meds/Allergies Reviewed Medications and Allergies including time and route of recently administered narcotics and sedatives. MEDS/ALLERGIES REVIEWED: Yes ASA RATING ASA RATING: II AIRWAY ASSESSMENT Airway Assessment Airway patency, oral function limitations, presence of caps, crowns, dentures, partials, and ability to extend neck assessed. AIRWAY ASSESSMENT: Yes MALLAMPATI SCORE MALLAMPATI SCORE: II PRE-SEDATION ASSESSMENT PRE-SEDATION ASSESSMENT: Yes MESHA IYER MD October 01, 2021 10:26
[2021-10-01] MEDS ORDERED: NITROGLYCERIN 200 MCG/2 ML SYRINGE FOR CATH/VASC LAB. ONE (10:36)
[2021-10-01 10:40] LABS: CALCIUM 9.1 mg/dL (8.5-10.1); CREATININE 0.9 mg/dL (0.6-1.0)
[2021-10-01 10:41] LABS: POTASSIUM 4.7 mmol/L (3.5-5.1)
[2021-10-01 10:47] LABS: HEMATOCRIT 38.6 % (36.0-47.0); HEMOGLOBIN 13.2 g/dL (12.0-15.5); RED BLOOD COUNT 4.32 x10^6/uL (3.50-5.40); RED CELL DISTRIBUTION WIDTH 13.8 % (11.5-14.5); WHITE BLOOD COUNT 8.7 x10^3/uL (4.0-11.0)
[2021-10-01 10:57] LABS: PROTHROMBIN TIME PATIENT 12.6 SEC (11.7-14.0)
[2021-10-01] MEDS ORDERED: HEPARIN for IV BOLUS 10,000 UNIT/10 ML VIAL. IART ONE (11:00)
[2021-10-01] MEDS ORDERED: VERAPAMIL 5 MG/2 ML VIAL. IART ONE (11:00)
[2021-10-01] MEDS ORDERED: NITROGLYCERIN 200 MCG/2 ML SYRINGE FOR CATH/VASC LAB. IART ONE (11:00)
[2021-10-01] MEDS ORDERED: fentaNYL PF VIAL 100 MCG/2 ML VIAL IV ONE (11:00)
[2021-10-01] MEDS ORDERED: IV 1/2 NORMAL SALINE 1,000 ML IV SCH (11:00)
[2021-10-01] MEDS ORDERED: MIDAZOLAM HCL/PF 5 MG/5 ML VIAL. IV ONE (11:00)
[2021-10-01] MEDS ORDERED: LIDOCAINE 1% PF 2 ML VIAL. INJ ONE (11:00)
--- NOTE | 2021-10-01 12:55 | CARD ---
MR#: [id number] Date of Study: 10/01/2021 Ordering Physician: MESHA ARIZA, Referring Physician: MESHA ARIZA, Tech: Ava Hays RT(R) APPROVED REPORT Patient StatusOUT-PATIENT Harness Brusher: Ava Hays RT(R) Procedure(s) performed: Aortogram with bilateral lower extremity runoff via right transradial approac h MODERATE SEDATION TIME: 32 MINUTES FLUORO TIME: 2.6 MIN DOSE: 23.3 GYCM2 CONTRAST: 46CC VISI HISTORY : Peripheral artery disease and abnormal arterial duplex scan. CASE TECHNIQUE After explaining the risks, benefits, and alternative options, informed consent was obtained from the patient. IV conscious sedation was used throughout procedure with appropriate monitoring and was per formed in the presence of a registered nurse who was an independent trained observer other than the ebony joshi performing the procedure. During this case, Fluoroscopy and low osmolar contrast were used f or imaging. Specimen(s) Removed: No Estimated Blood loss: 15 cc's. PROCEDURE NARRATIVE After explaining the risk, benefits and alternative options, informed consent was obtained from patie nt. Patient was brought to the cardiac Behavioral Analyst and her right wrist was prepped and draped in the us ual fashion after confirming a positive modified Alonzo's test. Arterial access was obtained in the r ight radial artery and a 6 [place] sheath was inserted. A 4 [place] R2P PV multicurve catheter was the n advanced under fluoroscopic guidance and the tip positioned in the distal descending aorta, aortoil iac angiography was performed. This was then advanced into the left external iliac artery and select ravi left lower extremity angiography was performed. With the catheter then position in the right ext ernal iliac artery, selective right lower extremity angiography was performed. Patient tolerated the procedure well. Hemostasis was achieved using TR band. There were no immediate complications. FINDINGS 1. No significant stenosis involving the distal descending aorta 2. 30% stenosis involving the right common iliac artery. No significant stenosis involving left com mon iliac and bilateral external iliac arteries 3. No significant stenosis involving bilateral common femoral arteries 4. The left superficial femoral artery showed 30% proximal segment stenosis, 80% long proximal to mi d segment stenosis and 100% chronic total occlusion in the distal segment with reconstitution of popl iteal artery via collaterals. The popliteal artery itself did not show any significant stenosis. Th e right superficial femoral artery showed long 70% stenosis in the proximal segment and 100% chronic total occlusion in the mid to distal segment with reconstitution of the popliteal artery via collater als. 5. Of note, patient has bilateral below the knee amputations from prior sepsis and DIC. 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 Recommendations Since patient does not have any nonhealing wounds, we will plan for vascular risk factor modification and regular exercise regimen. Signed by : Mesha Ariza, Electronically Approved : 10/01/2021 12:54:50
--- NOTE | 2021-10-01 13:30 | NUR ---
Discharge Note: AILIN WESTBROOK Discharge instructions and discharge home medications reviewed with Patient and a copy given. All questions have been answered and understanding verbalized. Dressing to R wrist dry and intact, armboard in place The following instructions and handouts were given: radial site care, sedation Discontinued lines and drains: Peripheral IV intact. Patient discharged to Home or Self Care with Parent via Wheelchair ESTRELLA BURLESON Addendum: 10/01/21 at 1417 by SUZANNE PA RN Amended: Links added.
== END 2021-10-01 13:30 | disposition home or self-care (01) ==
LOC: CCL 08:05
PROVIDERS: ATTEND Internal Medicine Cardiovascular Disease
DX: I73.9 Peripheral vascular disease, unspecified (principal); J44.9 Chronic obstructive pulmonary disease, unspecified; K21.9 Gastro-esophageal reflux disease without esophagitis; M19.90 Unspecified osteoarthritis, unspecified site; F41.9 Anxiety disorder, unspecified; F32.9 Major depressive disorder, single episode, unspecified; F17.210 Nicotine dependence, cigarettes, uncomplicated; Z90.49 Acquired absence of other specified parts of digestive tract; Z98.890 Other specified postprocedural states; Z79.899 Other long term (current) drug therapy; Z88.0 Allergy status to penicillin; Z88.1 Allergy status to other antibiotic agents; Z88.8 Allergy status to other drugs, medicaments and biological substances
CPT/HCPCS: 36246; 36415; 75625; 75716; 80048; 85027; 85610; 99152; 99153; C1769; C1887; C1894; J1644; J2250; J3010; J3490; J7050; Q9967; J7030